=== PATIENT | male | born 1940 | race Asian ===

== ENCOUNTER 2021-05-04 08:20 | Inpatient (IN) | payer OTHER ==
[~2021-05-04] VITALS: Ht 157.5 cm; Wt 76.8 kg
[2021-05-04 09:16] LABS: Hematocrit 35.2 % (41.0-53.0); Hemoglobin 12.1 g/dL (13.5-17.5); Mean Corpuscular Hemoglobin 31.9 pg (28.0-32.0); Mean Corpuscular Hgb Conc. 34.3 g/dL (32.0-36.0); Mean Corpuscular Volume 92.9 fL (80.0-100.0); Red Blood Cells 3.79 10^6/uL (4.5-5.90); Red Cell Distribution Width 19.1 % (11.8-14.3); White Blood Cell 9.3 10^3/uL (4.4-10.8)
[2021-05-04 09:29] LABS: Basophils % (manual) 0 (0.0-2.0); Blast Cells 0; Metamyelocytes % 0; Myelocytes % 0; Promyelocytes % 0; Reactive Lymphocytes 0
[2021-05-04 09:35] LABS: Albumin 2.9 g/dL (3.4-5.0); Anion Gap 8 (5-15); Blood Urea Nitrogen 44 mg/dL (7-18); Carbon Dioxide 20 mmol/L (21-32); Chloride 112 mmol/L (98-107); Glucose 108 mg/dL (74-106); Magnesium 2.5 mg/dL (1.6-2.6); Potassium 3.7 mmol/L (3.5-5.1); Sodium 140 mmol/L (136-145)
[2021-05-04 09:41] LABS: Alanine Aminotransferase 50 U/L (16-61); Alkaline Phosphatase 97 U/L (45-117); Aspartate Aminotransferase 50 U/L (15-37); BUN/Creatinine Ratio 22.9; Bilirubin, Total 0.5 mg/dL (0.2-1.0); GFR African American 44 mL/min; GFR Non-African American 36 mL/min; Total Protein 6.9 g/dL (6.4-8.2)
[2021-05-04 10:21] LABS: Band Neutrophils % (manual) 2; Eosinophils % (manual) 6 (0-7); Lymphocytes % (manual) 10 (10.0-50.0); Monocytes % (manual) 11 (0-12)
[2021-05-04] MEDS ORDERED: cefTRIAXone 1GM/50ML D5W 50 ML IV ONE (11:30)
[2021-05-04] MEDS ORDERED: AZITHROMYCIN 500MG/ 250ML 250 ML IV ONE (11:30)
[2021-05-04 13:39] VITALS: BP 125/54
[2021-05-04] MEDS ORDERED: MORPHINE SULFATE INJECTION 2 MG/ML SYRG IV PRN (14:15)
[2021-05-04] MEDS ORDERED: HYDROcodone-ACET 5/325MG TAB PO PRN (14:15)
[2021-05-04] MEDS ORDERED: NITROGLYCERIN 0.4 MG SL TAB SL PRN (14:15)
[2021-05-04 14:28] LABS: Urine WBC None Seen /hpf (0 - 3)
[2021-05-04 14:49] LABS: Urine Bacteria FEW /hpf (None Seen); Urine Blood Negative /uL (Negative); Urine Mucus FEW (None Seen); Urine Specific Gravity 1.023 (1.001-1.035)
[2021-05-04] MEDS: FUROSEMIDE 40 MG/4 ML VIAL IV SCH (16:26)
[2021-05-04 18:35] VITALS: BP 114/60
[2021-05-04 22:00] VITALS: BP 103/57
[2021-05-04] MEDS: HEPARIN SODIUM (PORCINE) 5000 UNITS/ML 1ML VIAL SC SCH (22:15)
[2021-05-05] VITALS (8 sets, daily range): BP systolic 92–132; BP diastolic 52–60
[2021-05-05] MEDS: FUROSEMIDE 40 MG/4 ML VIAL IV SCH (06:42)
[2021-05-05] MEDS ORDERED: LOVA40TA72 PO (10:17)
[2021-05-05] MEDS ORDERED: AML5T PO (10:17)
[2021-05-05] MEDS ORDERED: LEVO250T69 PO (10:17)
[2021-05-05] MEDS ORDERED: ASPI-231 PO (10:17)
[2021-05-05] MEDS ORDERED: ACYC-161 PO (10:17)
[2021-05-05] MEDS: ASPirin 81 mg TAB PO SCH (10:43)
[2021-05-05] MEDS: DOCUSATE SOD 100 MG CAP PO SCH (10:43)
[2021-05-05] MEDS: PANTOPRAZOLE 40 MG TAB PO SCH (10:43)
[2021-05-05] MEDS: HEPARIN SODIUM (PORCINE) 5000 UNITS/ML 1ML VIAL SC SCH ×2 (10:47→22:02)
[2021-05-05] MEDS ORDERED: MORPHINE SULFATE INJECTION 2 MG/ML SYRG IV PRN (13:00)
[2021-05-05] MEDS: MIDODRINE HCL 10 MG TAB PO SCH (17:21)
[2021-05-05] MEDS ORDERED: SODIUM CHLORIDE 0.9% 500 ML IV ONE (17:30)
[2021-05-06 04:57] VITALS: BP 117/55
[2021-05-06 05:40] LABS: Basophils # (auto) 0 10 ^3/uL (0-0.2); Basophils % (auto) 0.2 % (0.0-2.0); Eosinophils # (auto) 0.6 10 ^3/uL (0-0.8); Hematocrit 34.5 % (41.0-53.0); Hemoglobin 11.9 g/dL (13.5-17.5); Lymphocytes # (auto) 0.8 10 ^3/uL (0.4-5.4); Mean Corpuscular Hemoglobin 31.8 pg (28.0-32.0); Mean Corpuscular Hgb Conc. 34.4 g/dL (32.0-36.0); Mean Corpuscular Volume 92.3 fL (80.0-100.0); Monocytes # (auto) 0.5 10 ^3/uL (0-1.3); Monocytes % (auto) 6.1 % (0.0-12.0); Neutrophils # (auto) 6.5 10 ^3/uL (1.6-8.6); Neutrophils % (auto) 77.7 % (37.0-80.0); Nucleated Red Blood Cells % 0.3 %; Red Blood Cells 3.73 10^6/uL (4.5-5.90); Red Cell Distribution Width 18.5 % (11.8-14.3); White Blood Cell 8.3 10^3/uL (4.4-10.8)
[2021-05-06] MEDS: MIDODRINE HCL 10 MG TAB PO SCH (05:45)
[2021-05-06 05:59] LABS: Potassium 3.7 mmol/L (3.5-5.1)
[2021-05-06 06:11] LABS: Albumin 2.4 g/dL (3.4-5.0); BUN/Creatinine Ratio 24.6; Bilirubin, Direct 0.2 mg/dL (0-0.2); Bilirubin, Total 0.6 mg/dL (0.2-1.0); Calcium 7.5 mg/dL (8.5-10.1); Phosphorus 2.7 mg/dL (2.5-4.90); Total Protein 6.4 g/dL (6.4-8.2)
[2021-05-06 08:57] VITALS: BP 117/60
[2021-05-06] MEDS: ASPirin 81 mg TAB PO SCH (10:00)
[2021-05-06] MEDS: DOCUSATE SOD 100 MG CAP PO SCH (10:00)
[2021-05-06] MEDS ORDERED: FUROSEMIDE 40 MG/4 ML VIAL IV SCH (10:00)
[2021-05-06] MEDS: PANTOPRAZOLE 40 MG TAB PO SCH (10:00)
[2021-05-06] MEDS: HEPARIN SODIUM (PORCINE) 5000 UNITS/ML 1ML VIAL SC SCH (10:32)
[2021-05-06] MEDS: ALBUTEROL SULF 2.5 MG/0.5ML(0.5%) NEB SOLN NEB PRN ×2 (10:41→18:03)
[2021-05-06] MEDS: IPRATROPIUM BROM 0.5 MG/2.5ML INH SOL NEB SCH ×2 (12:00→18:03)
[2021-05-06] MEDS ORDERED: guaiFENesin 200 MG/10 ML UD GT PRN (12:00)
[2021-05-06 13:00] VITALS: BP 124/61
[2021-05-06 16:31] VITALS: BP 122/74
[2021-05-06] MEDS ORDERED: ALBUMIN 25% 100 ML IV ONE (17:00)
[2021-05-06 18:32] LABS: Creatinine, Urine 146 mg/dL (30.0-125.0); Sodium Urine 25 mmol/L (40-220)
[2021-05-06 18:38] LABS: Urine Bacteria NONE SEEN /hpf (None Seen); Urine Blood 1+ /uL (Negative); Urine Mucus FEW (None Seen); Urine Specific Gravity 1.022 (1.001-1.035); Urine WBC 2 /hpf (0 - 3)
[2021-05-06 19:46] LABS: Basophils # (auto) 0 10 ^3/uL (0-0.2); Basophils % (auto) 0.6 % (0.0-2.0); Eosinophils # (auto) 0.5 10 ^3/uL (0-0.8); Eosinophils % (auto) 6.5 % (0.0-7.0); Hematocrit 35.4 % (41.0-53.0); Hemoglobin 11.8 g/dL (13.5-17.5); Lymphocytes # (auto) 0.8 10 ^3/uL (0.4-5.4); Lymphocytes % (auto) 9.8 % (10.0-50.0); Mean Corpuscular Hemoglobin 30.7 pg (28.0-32.0); Mean Corpuscular Hgb Conc. 33.3 g/dL (32.0-36.0); Mean Corpuscular Volume 92.1 fL (80.0-100.0); Monocytes # (auto) 0.5 10 ^3/uL (0-1.3); Monocytes % (auto) 6.3 % (0.0-12.0); Neutrophils # (auto) 5.9 10 ^3/uL (1.6-8.6); Neutrophils % (auto) 76.8 % (37.0-80.0); Nucleated Red Blood Cells % 0.2 %; Red Blood Cells 3.85 10^6/uL (4.5-5.90); Red Cell Distribution Width 18.9 % (11.8-14.3); White Blood Cell 7.7 10^3/uL (4.4-10.8)
[2021-05-06 20:00] VITALS: BP 119/70
[2021-05-06] MEDS: FUROSEMIDE 40 MG/4 ML VIAL IV SCH (20:11)
[2021-05-06 20:30] LABS: INR 1.1 (0.9-1.15); Partial Thromboplastin Time 30.2 sec (23.6-33.0)
[2021-05-06] MEDS: HEPARIN DRIP/D5W 100UNITS/ML 250 ML IV SCH (21:12)
[2021-05-06 22:00] VITALS: BP 130/65
[2021-05-07] MEDS: IPRATROPIUM BROM 0.5 MG/2.5ML INH SOL NEB SCH ×4 (00:13→18:05)
[2021-05-07 03:04] LABS: Basophils # (auto) 0.1 10 ^3/uL (0-0.2); Eosinophils # (auto) 0.7 10 ^3/uL (0-0.8); Eosinophils % (auto) 9.5 % (0.0-7.0); Hematocrit 31.7 % (41.0-53.0); Hemoglobin 11.1 g/dL (13.5-17.5); Lymphocytes # (auto) 0.7 10 ^3/uL (0.4-5.4); Mean Corpuscular Hemoglobin 32.1 pg (28.0-32.0); Mean Corpuscular Hgb Conc. 35.1 g/dL (32.0-36.0); Mean Corpuscular Volume 91.6 fL (80.0-100.0); Monocytes # (auto) 0.5 10 ^3/uL (0-1.3); Neutrophils # (auto) 5.9 10 ^3/uL (1.6-8.6); Neutrophils % (auto) 74.5 % (37.0-80.0); Nucleated Red Blood Cells % 0.2 %; Red Blood Cells 3.46 10^6/uL (4.5-5.90); Red Cell Distribution Width 18.2 % (11.8-14.3); White Blood Cell 7.9 10^3/uL (4.4-10.8)
[2021-05-07 03:19] LABS: Anion Gap 10 (5-15); BUN/Creatinine Ratio 22.7; Blood Urea Nitrogen 30 mg/dL (7-18); Calcium 7.4 mg/dL (8.5-10.1); Carbon Dioxide 22 mmol/L (21-32); Chloride 105 mmol/L (98-107); GFR African American 67 mL/min; GFR Non-African American 55 mL/min; Glucose 102 mg/dL (74-106); Potassium 3.6 mmol/L (3.5-5.1); Sodium 137 mmol/L (136-145)
[2021-05-07 03:52] LABS: INR 1.2 (0.9-1.15)
[2021-05-07 05:00] VITALS: BP 127/62
[2021-05-07] MEDS: ALBUTEROL SULF 2.5 MG/0.5ML(0.5%) NEB SOLN NEB PRN ×2 (05:51→18:05)
[2021-05-07] MEDS: FUROSEMIDE 40 MG/4 ML VIAL IV SCH ×2 (06:04→17:52)
[2021-05-07 08:00] VITALS: BP 114/48
[2021-05-07 08:30] VITALS: BP 114/48
[2021-05-07] MEDS: ASPirin 81 mg TAB PO SCH (09:40)
[2021-05-07] MEDS: DOCUSATE SOD 100 MG CAP PO SCH (09:40)
[2021-05-07] MEDS: PANTOPRAZOLE 40 MG TAB PO SCH (09:40)
[2021-05-07 11:16] LABS: INR 1.17 (0.9-1.15)
[2021-05-07] MEDS: HEPARIN DRIP/D5W 100UNITS/ML 250 ML IV SCH ×2 (11:22→23:06)
[2021-05-07 11:26] LABS: Partial Thromboplastin Time 102.5 sec (23.6-33.0)
[2021-05-07 12:30] VITALS: BP 118/64
[2021-05-07] MEDS: methylPREDNISolone SOD SUCC 125 MG/2 ML VL IV SCH ×2 (14:37→22:00)
[2021-05-07 17:00] VITALS: BP 110/66
[2021-05-07 18:18] LABS: INR 1.16 (0.9-1.15); Partial Thromboplastin Time 68.7 sec (23.6-33.0)
[2021-05-07 22:00] VITALS: BP 118/60
[2021-05-08] VITALS (17 sets, daily range): BP systolic 96–118; BP diastolic 44–57
[2021-05-08 00:07] LABS: INR 1.16 (0.9-1.15)
[2021-05-08] MEDS: IPRATROPIUM BROM 0.5 MG/2.5ML INH SOL NEB SCH ×5 (00:18→23:53)
[2021-05-08] MEDS: HEPARIN DRIP/D5W 100UNITS/ML 250 ML IV SCH (05:14)
[2021-05-08] MEDS: ALBUTEROL SULF 2.5 MG/0.5ML(0.5%) NEB SOLN NEB PRN ×2 (05:45→23:53)
[2021-05-08] MEDS: FUROSEMIDE 40 MG/4 ML VIAL IV SCH (05:47)
[2021-05-08] MEDS: methylPREDNISolone SOD SUCC 125 MG/2 ML VL IV SCH ×3 (05:47→22:15)
[2021-05-08 06:22] LABS: Basophils # (auto) 0 10 ^3/uL (0-0.2); Basophils % (auto) 0.4 % (0.0-2.0); Eosinophils # (auto) 0 10 ^3/uL (0-0.8); Eosinophils % (auto) 0.1 % (0.0-7.0); Hematocrit 36.7 % (41.0-53.0); Hemoglobin 12.6 g/dL (13.5-17.5); Lymphocytes # (auto) 0.6 10 ^3/uL (0.4-5.4); Lymphocytes % (auto) 10.4 % (10.0-50.0); Mean Corpuscular Hemoglobin 31.6 pg (28.0-32.0); Mean Corpuscular Hgb Conc. 34.4 g/dL (32.0-36.0); Mean Corpuscular Volume 91.7 fL (80.0-100.0); Monocytes # (auto) 0.1 10 ^3/uL (0-1.3); Monocytes % (auto) 2.4 % (0.0-12.0); Neutrophils # (auto) 4.7 10 ^3/uL (1.6-8.6); Neutrophils % (auto) 86.7 % (37.0-80.0); Nucleated Red Blood Cells % 0.1 %; Red Blood Cells 4.01 10^6/uL (4.5-5.90); Red Cell Distribution Width 18.5 % (11.8-14.3); White Blood Cell 5.5 10^3/uL (4.4-10.8)
[2021-05-08 06:38] LABS: Calcium 7.6 mg/dL (8.5-10.1); Potassium 3.7 mmol/L (3.5-5.1)
[2021-05-08 06:40] LABS: INR 1.16 (0.9-1.15)
[2021-05-08] MEDS: DOCUSATE SOD 100 MG CAP PO SCH (10:00)
[2021-05-08] MEDS: ASPirin 81 mg TAB PO SCH (10:00)
[2021-05-08] MEDS ORDERED: D5W/SOD CHL 0.45% 1,000 ML IV SCH (10:15)
[2021-05-08] MEDS: cefTRIAXone 1GM/50ML D5W 50 ML IV SCH (10:56)
[2021-05-08] MEDS: PANTOPRAZOLE 40 MG/10 ML VIAL INJ IV SCH (10:56)
[2021-05-08] MEDS ORDERED: BACTRIM 5MG/KG Q8HR PER RX 0 ML IV SCH (12:45)
[2021-05-08] MEDS ORDERED: D5W 5% IV SCH (14:00)
[2021-05-08] MEDS ORDERED: SULFAMETH TRIMETH IV SCH (14:00)
[2021-05-08] MEDS: SULFAMETH TRIMETH IV SCH ×2 (15:30→22:16)
[2021-05-08] MEDS: D5W 5% IV SCH ×2 (15:30→22:16)
[2021-05-09] VITALS (72 sets, daily range): BP systolic 82–165; BP diastolic 39–72
[2021-05-09] MEDS ORDERED: IOHEXOL 350 MG/ML 100ML IJ ONE (03:04)
[2021-05-09 04:14] LABS: Basophils # (auto) 0 10 ^3/uL (0-0.2); Basophils % (auto) 0.2 % (0.0-2.0); Eosinophils # (auto) 0 10 ^3/uL (0-0.8); Hematocrit 34.8 % (41.0-53.0); Hemoglobin 11.7 g/dL (13.5-17.5); Lymphocytes # (auto) 0.5 10 ^3/uL (0.4-5.4); Lymphocytes % (auto) 4.7 % (10.0-50.0); Mean Corpuscular Hemoglobin 30.4 pg (28.0-32.0); Mean Corpuscular Hgb Conc. 33.6 g/dL (32.0-36.0); Mean Corpuscular Volume 90.6 fL (80.0-100.0); Monocytes # (auto) 0.6 10 ^3/uL (0-1.3); Monocytes % (auto) 5.3 % (0.0-12.0); Neutrophils # (auto) 10.1 10 ^3/uL (1.6-8.6); Neutrophils % (auto) 89.8 % (37.0-80.0); Nucleated Red Blood Cells % 0.1 %; Red Blood Cells 3.84 10^6/uL (4.5-5.90); Red Cell Distribution Width 18.1 % (11.8-14.3); White Blood Cell 11.3 10^3/uL (4.4-10.8)
[2021-05-09 04:32] LABS: Albumin 2.8 g/dL (3.4-5.0); BUN/Creatinine Ratio 25.7; Calcium 6.9 mg/dL (8.5-10.1); Potassium 3.1 mmol/L (3.5-5.1)
[2021-05-09 04:35] LABS: Bilirubin, Total 0.3 mg/dL (0.2-1.0); Total Protein 6.6 g/dL (6.4-8.2)
[2021-05-09 04:56] LABS: INR 1.24 (0.9-1.15)
[2021-05-09] MEDS: D5W 5% IV SCH ×3 (05:40→22:09)
[2021-05-09] MEDS: SULFAMETH TRIMETH IV SCH ×3 (05:40→22:09)
[2021-05-09] MEDS: methylPREDNISolone SOD SUCC 125 MG/2 ML VL IV SCH ×3 (05:40→22:09)
[2021-05-09] MEDS: HEPARIN DRIP/D5W 100UNITS/ML 250 ML IV SCH ×2 (05:47→15:07)
[2021-05-09] MEDS: IPRATROPIUM BROM 0.5 MG/2.5ML INH SOL NEB SCH ×4 (06:10→23:53)
[2021-05-09] MEDS: ALBUTEROL SULF 2.5 MG/0.5ML(0.5%) NEB SOLN NEB PRN ×2 (06:10→18:33)
[2021-05-09] MEDS: cefTRIAXone 1GM/50ML D5W 50 ML IV SCH (08:56)
[2021-05-09] MEDS ORDERED: POTASSIUM EFFERVESENT TAB 25 MEQ PO ONE (10:00)
[2021-05-09] MEDS: DOCUSATE SOD 100 MG CAP PO SCH (10:00)
[2021-05-09] MEDS: ASPirin 81 mg TAB PO SCH (10:00)
[2021-05-09] MEDS ORDERED: ETOMIDATE (2MG/ML) 20ML VIAL IV ONE ×2 (10:33→10:55)
[2021-05-09] MEDS ORDERED: ROCURONIUM 10MG/ML 10ML VIAL IV ONE ×2 (10:34→10:55)
[2021-05-09] MEDS: fentaNYL Drip 2500mCg/250mlNS 250 ML IV SCH ×2 (10:45→18:50)
[2021-05-09] MEDS: NOREPINEPHRINE 8 MG/250ML KIT 250 ML IV SCH ×2 (10:45→16:30)
[2021-05-09] MEDS: PROPOFOL 100 ML IV SCH (10:45)
[2021-05-09] MEDS ORDERED: NOREPINEPHRINE 8 MG/250ML KIT 250 ML IV ONE (10:50)
[2021-05-09] MEDS ORDERED: MIDAZOLAM DRIP 50 mg/50mL 50 ML IV ONE (10:51)
[2021-05-09] MEDS: MIDAZOLAM DRIP 50 mg/50mL 50 ML IV SCH ×2 (10:55→17:34)
[2021-05-09] MEDS ORDERED: POTASSIUM CHL 20 Meq TABLET PO ONE (11:00)
[2021-05-09] MEDS: PANTOPRAZOLE 40 MG/10 ML VIAL INJ IV SCH (12:29)
[2021-05-09 13:38] LABS: INR 1.26 (0.9-1.15)
[2021-05-09 13:41] LABS: Partial Thromboplastin Time 107.3 sec (23.6-33.0)
[2021-05-09 21:39] LABS: INR 1.27 (0.9-1.15); Partial Thromboplastin Time 63.8 sec (23.6-33.0)
[2021-05-09 23:00] LABS: Partial Thromboplastin Time 75.8 sec (23.6-33.0)
[2021-05-09 23:02] LABS: Partial Thromboplastin Time 71.6 sec (23.6-33.0)
[2021-05-09 23:02] LABS: Partial Thromboplastin Time 119.6 sec (23.6-33.0)
[2021-05-10] VITALS (58 sets, daily range): BP systolic 57–166; BP diastolic 30–74
[2021-05-10] MEDS: PROPOFOL 100 ML IV SCH (03:09)
[2021-05-10 05:15] LABS: Basophils # (auto) 0 10 ^3/uL (0-0.2); Basophils % (auto) 0.2 % (0.0-2.0); Eosinophils # (auto) 0 10 ^3/uL (0-0.8); Hematocrit 32.4 % (41.0-53.0); Hemoglobin 11.2 g/dL (13.5-17.5); Lymphocytes # (auto) 0.5 10 ^3/uL (0.4-5.4); Lymphocytes % (auto) 3.8 % (10.0-50.0); Mean Corpuscular Hemoglobin 31.3 pg (28.0-32.0); Mean Corpuscular Hgb Conc. 34.6 g/dL (32.0-36.0); Mean Corpuscular Volume 90.5 fL (80.0-100.0); Monocytes % (auto) 7.2 % (0.0-12.0); Neutrophils # (auto) 12.1 10 ^3/uL (1.6-8.6); Neutrophils % (auto) 88.8 % (37.0-80.0); Nucleated Red Blood Cells % 0.1 %; Red Blood Cells 3.58 10^6/uL (4.5-5.90); Red Cell Distribution Width 18.2 % (11.8-14.3); White Blood Cell 13.7 10^3/uL (4.4-10.8)
[2021-05-10 05:22] LABS: INR 1.37 (0.9-1.15); Partial Thromboplastin Time 61.9 sec (23.6-33.0)
[2021-05-10 05:33] LABS: Potassium 3.5 mmol/L (3.5-5.1)
[2021-05-10 05:42] LABS: Albumin 2.7 g/dL (3.4-5.0); BUN/Creatinine Ratio 19.2; Bilirubin, Total 0.3 mg/dL (0.2-1.0); Calcium 6.4 mg/dL (8.5-10.1); Total Protein 6.5 g/dL (6.4-8.2)
[2021-05-10] MEDS: methylPREDNISolone SOD SUCC 125 MG/2 ML VL IV SCH ×3 (05:51→22:14)
[2021-05-10] MEDS: D5W 5% IV SCH (05:51)
[2021-05-10] MEDS: SULFAMETH TRIMETH IV SCH (05:51)
[2021-05-10] MEDS: IPRATROPIUM BROM 0.5 MG/2.5ML INH SOL NEB SCH ×3 (06:50→18:13)
[2021-05-10] MEDS: ALBUTEROL SULF 2.5 MG/0.5ML(0.5%) NEB SOLN NEB PRN ×2 (06:50→13:04)
[2021-05-10] MEDS ORDERED: SODIUM BICARBONATE 50ML VIAL 75 ML in SOD CHL 0.45% 1,000 ML IV ONE (07:30)
[2021-05-10] MEDS ORDERED: LIDOCAINE 2%HCL (LOCAL ANESTH.) INJ 20ML MDV ONE (08:29)
[2021-05-10] MEDS ORDERED: SODIUM CHLORIDE LOCK 10 ML ONE (08:29)
[2021-05-10] MEDS ORDERED: LIDOCAINE HCL 2% TOP JELLY 5ML TOP ONE (08:30)
[2021-05-10] MEDS: AZITHROMYCIN 500MG/ 250ML 250 ML IV SCH (10:14)
[2021-05-10] MEDS: PANTOPRAZOLE 40 MG/10 ML VIAL INJ IV SCH (10:14)
[2021-05-10] MEDS: DOCUSATE SOD 100 MG CAP PO SCH (10:15)
[2021-05-10] MEDS: ASPirin 81 mg TAB PO SCH (10:15)
[2021-05-10 12:10] LABS: INR 1.16 (0.9-1.15); Partial Thromboplastin Time 53.4 sec (23.6-33.0)
[2021-05-10] MEDS: HEPARIN DRIP/D5W 100UNITS/ML 250 ML IV SCH ×2 (17:27→22:17)
[2021-05-10] MEDS: MIDAZOLAM DRIP 50 mg/50mL 50 ML IV SCH ×3 (17:56→22:51)
[2021-05-10 20:44] LABS: INR 1.12 (0.9-1.15); Partial Thromboplastin Time 56.1 sec (23.6-33.0)
[2021-05-10] MEDS ORDERED: SULFAMETH TRIMETH IV SCH (22:00)
[2021-05-10] MEDS ORDERED: D5W 5% IV SCH (22:00)
[2021-05-11] VITALS (98 sets, daily range): BP systolic 90–148; BP diastolic 45–61
[2021-05-11] MEDS: PROPOFOL 100 ML IV SCH ×2 (00:10→23:52)
[2021-05-11] MEDS: IPRATROPIUM BROM 0.5 MG/2.5ML INH SOL NEB SCH ×4 (00:10→18:23)
[2021-05-11] MEDS: MIDAZOLAM DRIP 50 mg/50mL 50 ML IV SCH ×3 (03:13→22:27)
[2021-05-11] MEDS: fentaNYL Drip 2500mCg/250mlNS 250 ML IV SCH ×2 (03:14→14:05)
[2021-05-11 04:07] LABS: Albumin 2.5 g/dL (3.4-5.0); BUN/Creatinine Ratio 14.9
[2021-05-11 04:09] LABS: Bilirubin, Total 0.2 mg/dL (0.2-1.0); Total Protein 5.8 g/dL (6.4-8.2)
[2021-05-11 04:14] LABS: Basophils # (auto) 0 10 ^3/uL (0-0.2); Basophils % (auto) 0.3 % (0.0-2.0); Eosinophils # (auto) 0 10 ^3/uL (0-0.8); Hematocrit 30.7 % (41.0-53.0); Hemoglobin 10.5 g/dL (13.5-17.5); Lymphocytes # (auto) 0.3 10 ^3/uL (0.4-5.4); Lymphocytes % (auto) 3.3 % (10.0-50.0); Mean Corpuscular Hemoglobin 31.1 pg (28.0-32.0); Mean Corpuscular Hgb Conc. 34.3 g/dL (32.0-36.0); Mean Corpuscular Volume 90.6 fL (80.0-100.0); Monocytes # (auto) 0.6 10 ^3/uL (0-1.3); Neutrophils # (auto) 8.3 10 ^3/uL (1.6-8.6); Neutrophils % (auto) 90.4 % (37.0-80.0); Nucleated Red Blood Cells % 0.3 %; Red Blood Cells 3.39 10^6/uL (4.5-5.90); Red Cell Distribution Width 18.5 % (11.8-14.3); White Blood Cell 9.2 10^3/uL (4.4-10.8)
[2021-05-11 04:19] LABS: Calcium 5.7 mg/dL (8.5-10.1)
[2021-05-11 05:03] LABS: INR 1.08 (0.9-1.15); Partial Thromboplastin Time 64.5 sec (23.6-33.0)
[2021-05-11] MEDS: methylPREDNISolone SOD SUCC 125 MG/2 ML VL IV SCH ×3 (05:38→21:40)
[2021-05-11] MEDS: NOREPINEPHRINE 8 MG/250ML KIT 250 ML IV SCH (10:14)
[2021-05-11] MEDS: PANTOPRAZOLE 40 MG/10 ML VIAL INJ IV SCH (10:35)
[2021-05-11] MEDS: AZITHROMYCIN 500MG/ 250ML 250 ML IV SCH (10:35)
[2021-05-11] MEDS: ASPirin 81 mg TAB PO SCH (10:36)
[2021-05-11] MEDS: DOCUSATE SOD 100 MG CAP PO SCH (10:36)
[2021-05-11] MEDS: SODIUM CHLORIDE 0.9% 1,000 ML IV SCH (17:16)
[2021-05-11] MEDS: SULFAMETH TRIMETH IV SCH (21:57)
[2021-05-11] MEDS: D5W 5% IV SCH (21:57)
[2021-05-12] VITALS (103 sets, daily range): BP systolic 93–156; BP diastolic 39–57
[2021-05-12] MEDS: ALBUTEROL SULF 2.5 MG/0.5ML(0.5%) NEB SOLN NEB PRN ×2 (00:01→23:54)
[2021-05-12] MEDS: IPRATROPIUM BROM 0.5 MG/2.5ML INH SOL NEB SCH ×5 (00:01→23:55)
[2021-05-12 04:01] LABS: Basophils # (auto) 0 10 ^3/uL (0-0.2); Basophils % (auto) 0.2 % (0.0-2.0); Eosinophils # (auto) 0 10 ^3/uL (0-0.8); Hematocrit 30.7 % (41.0-53.0); Hemoglobin 10.5 g/dL (13.5-17.5); Lymphocytes # (auto) 0.2 10 ^3/uL (0.4-5.4); Lymphocytes % (auto) 2.8 % (10.0-50.0); Mean Corpuscular Hgb Conc. 34.2 g/dL (32.0-36.0); Mean Corpuscular Volume 90.5 fL (80.0-100.0); Monocytes # (auto) 0.6 10 ^3/uL (0-1.3); Monocytes % (auto) 6.6 % (0.0-12.0); Neutrophils # (auto) 7.7 10 ^3/uL (1.6-8.6); Neutrophils % (auto) 90.4 % (37.0-80.0); Nucleated Red Blood Cells % 0.1 %; Red Cell Distribution Width 18.3 % (11.8-14.3); White Blood Cell 8.6 10^3/uL (4.4-10.8)
[2021-05-12 04:12] LABS: INR 1.1 (0.9-1.15); Partial Thromboplastin Time 61.6 sec (23.6-33.0)
[2021-05-12 04:16] LABS: Albumin 2.7 g/dL (3.4-5.0)
[2021-05-12 04:23] LABS: BUN/Creatinine Ratio 17.3; Bilirubin, Total 0.2 mg/dL (0.2-1.0); Total Protein 6.1 g/dL (6.4-8.2)
[2021-05-12 04:24] LABS: Calcium 5.7 mg/dL (8.5-10.1)
[2021-05-12] MEDS: SODIUM CHLORIDE 0.9% 1,000 ML IV SCH ×3 (05:12→22:45)
[2021-05-12] MEDS: methylPREDNISolone SOD SUCC 125 MG/2 ML VL IV SCH ×3 (06:00→21:56)
[2021-05-12] MEDS ORDERED: FUROSEMIDE 100 MG/10ML VIAL IV ONE (08:30)
[2021-05-12] MEDS ORDERED: CALCIUM GLUC 1,000mg/50ml-NS 50 ML IV ONE ×2 (09:15→14:30)
[2021-05-12] MEDS: DOCUSATE SOD 100 MG CAP PO SCH (10:00)
[2021-05-12] MEDS: NOREPINEPHRINE 8 MG/250ML KIT 250 ML IV SCH (10:09)
[2021-05-12] MEDS: PANTOPRAZOLE 40 MG/10 ML VIAL INJ IV SCH (10:25)
[2021-05-12] MEDS: HEPARIN DRIP/D5W 100UNITS/ML 250 ML IV SCH (10:25)
[2021-05-12] MEDS: AZITHROMYCIN 500MG/ 250ML 250 ML IV SCH (10:25)
[2021-05-12] MEDS: ASPirin 81 mg TAB PO SCH (10:25)
[2021-05-12] MEDS: PROPOFOL 100 ML IV SCH ×2 (10:51→16:44)
[2021-05-12] MEDS: MIDAZOLAM DRIP 50 mg/50mL 50 ML IV SCH ×4 (12:20→23:35)
[2021-05-12 13:01] LABS: Potassium 4.5 mmol/L (3.5-5.1)
[2021-05-12 13:04] LABS: BUN/Creatinine Ratio 18.4
[2021-05-12] MEDS: fentaNYL Drip 2500mCg/250mlNS 250 ML IV SCH (14:29)
[2021-05-12] MEDS: D5W 5% IV SCH (21:56)
[2021-05-12] MEDS: SULFAMETH TRIMETH IV SCH (21:56)
[2021-05-13] VITALS (100 sets, daily range): BP systolic 97–130; BP diastolic 41–55
[2021-05-13] MEDS: fentaNYL Drip 2500mCg/250mlNS 250 ML IV SCH ×2 (00:41→14:12)
[2021-05-13] MEDS: PROPOFOL 100 ML IV SCH ×2 (04:00→14:13)
[2021-05-13 04:11] LABS: Basophils # (auto) 0.1 10 ^3/uL (0-0.2); Basophils % (auto) 0.9 % (0.0-2.0); Eosinophils # (auto) 0 10 ^3/uL (0-0.8); Hematocrit 29.4 % (41.0-53.0); Hemoglobin 9.9 g/dL (13.5-17.5); Lymphocytes # (auto) 0.2 10 ^3/uL (0.4-5.4); Lymphocytes % (auto) 2.1 % (10.0-50.0); Mean Corpuscular Hemoglobin 30.8 pg (28.0-32.0); Mean Corpuscular Hgb Conc. 33.6 g/dL (32.0-36.0); Mean Corpuscular Volume 91.8 fL (80.0-100.0); Monocytes # (auto) 0.3 10 ^3/uL (0-1.3); Monocytes % (auto) 3.4 % (0.0-12.0); Neutrophils # (auto) 7.9 10 ^3/uL (1.6-8.6); Neutrophils % (auto) 93.6 % (37.0-80.0); Nucleated Red Blood Cells % 0.2 %; Red Cell Distribution Width 18.7 % (11.8-14.3); White Blood Cell 8.5 10^3/uL (4.4-10.8)
[2021-05-13 04:29] LABS: INR 1.07 (0.9-1.15); Partial Thromboplastin Time 56.8 sec (23.6-33.0)
[2021-05-13 04:32] LABS: Albumin 2.6 g/dL (3.4-5.0)
[2021-05-13 04:36] LABS: BUN/Creatinine Ratio 18.8; Bilirubin, Total 0.2 mg/dL (0.2-1.0)
[2021-05-13 04:40] LABS: Calcium 5.8 mg/dL (8.5-10.1)
[2021-05-13] MEDS ORDERED: MAGNESIUM SULFATE 1GM/100ML 100 ML IV ONE (05:00)
[2021-05-13] MEDS ORDERED: CALCIUM GLUC 1,000mg/50ml-NS 50 ML IV ONE ×4 (05:00→10:45)
[2021-05-13] MEDS: methylPREDNISolone SOD SUCC 125 MG/2 ML VL IV SCH ×3 (06:05→21:27)
[2021-05-13] MEDS: MIDAZOLAM DRIP 50 mg/50mL 50 ML IV SCH ×4 (06:06→16:57)
[2021-05-13] MEDS: IPRATROPIUM BROM 0.5 MG/2.5ML INH SOL NEB SCH ×3 (06:08→18:26)
[2021-05-13] MEDS: ALBUTEROL SULF 2.5 MG/0.5ML(0.5%) NEB SOLN NEB PRN ×2 (06:08→18:26)
[2021-05-13] MEDS: SODIUM CHLORIDE 0.9% 1,000 ML IV SCH (08:45)
[2021-05-13] MEDS: PANTOPRAZOLE 40 MG/10 ML VIAL INJ IV SCH (09:32)
[2021-05-13] MEDS: ASPirin 81 mg TAB PO SCH (09:32)
[2021-05-13] MEDS: AZITHROMYCIN 500MG/ 250ML 250 ML IV SCH (09:32)
[2021-05-13] MEDS: DOCUSATE ORAL LIQUID 100 MG/10 ML UD GT SCH (09:35)
[2021-05-13] MEDS: NOREPINEPHRINE 8 MG/250ML KIT 250 ML IV SCH (09:57)
[2021-05-13] MEDS ORDERED: MICAFUNGIN SODIUM 100 MG in SODIUM CHL 0.9% 100 ML IV STA (10:10)
[2021-05-13] MEDS: DOPamine 1600MCG/ML D5W 250 ML IV SCH (11:04)
[2021-05-13] MEDS: CALCIUM GLUC 1,000mg/50ml-NS 50 ML IV SCH ×3 (11:15→13:09)
[2021-05-13] MEDS: HEPARIN DRIP/D5W 100UNITS/ML 250 ML IV SCH (14:00)
[2021-05-13] MEDS: SULFAMETH TRIMETH IV SCH (21:39)
[2021-05-13] MEDS: D5W 5% IV SCH (21:39)
[2021-05-14] VITALS (103 sets, daily range): BP systolic 104–124; BP diastolic 38–54
[2021-05-14] MEDS: ALBUTEROL SULF 2.5 MG/0.5ML(0.5%) NEB SOLN NEB PRN ×4 (00:09→19:13)
[2021-05-14] MEDS: IPRATROPIUM BROM 0.5 MG/2.5ML INH SOL NEB SCH ×4 (00:10→19:14)
[2021-05-14 04:21] LABS: Basophils # (auto) 0 10 ^3/uL (0-0.2); Basophils % (auto) 0.1 % (0.0-2.0); Eosinophils # (auto) 0 10 ^3/uL (0-0.8); Hematocrit 28.9 % (41.0-53.0); Hemoglobin 9.7 g/dL (13.5-17.5); Lymphocytes # (auto) 0.2 10 ^3/uL (0.4-5.4); Lymphocytes % (auto) 1.9 % (10.0-50.0); Mean Corpuscular Hgb Conc. 33.7 g/dL (32.0-36.0); Monocytes # (auto) 0.4 10 ^3/uL (0-1.3); Monocytes % (auto) 3.6 % (0.0-12.0); Neutrophils # (auto) 9.3 10 ^3/uL (1.6-8.6); Neutrophils % (auto) 94.4 % (37.0-80.0); Nucleated Red Blood Cells % 0.3 %; Red Blood Cells 3.14 10^6/uL (4.5-5.90); Red Cell Distribution Width 18.8 % (11.8-14.3); White Blood Cell 9.9 10^3/uL (4.4-10.8)
[2021-05-14 04:42] LABS: Calcium 6.2 mg/dL (8.5-10.1); Potassium 4.9 mmol/L (3.5-5.1)
[2021-05-14 04:44] LABS: Albumin 2.6 g/dL (3.4-5.0); BUN/Creatinine Ratio 20.4
[2021-05-14 04:47] LABS: Bilirubin, Total 0.3 mg/dL (0.2-1.0); Total Protein 5.9 g/dL (6.4-8.2)
[2021-05-14 04:59] LABS: INR 1.05 (0.9-1.15)
[2021-05-14 05:03] LABS: Partial Thromboplastin Time 104.4 sec (23.6-33.0)
[2021-05-14] MEDS: methylPREDNISolone SOD SUCC 125 MG/2 ML VL IV SCH ×3 (06:03→21:48)
[2021-05-14] MEDS: NOREPINEPHRINE 8 MG/250ML KIT 250 ML IV SCH (08:49)
[2021-05-14] MEDS: MIDAZOLAM DRIP 50 mg/50mL 50 ML IV SCH ×2 (08:51→13:42)
[2021-05-14] MEDS ORDERED: CALCIUM GLUC 1,000mg/50ml-NS 50 ML IV ONE ×2 (10:00→10:30)
[2021-05-14] MEDS: DOCUSATE ORAL LIQUID 100 MG/10 ML UD GT SCH (10:26)
[2021-05-14] MEDS: PANTOPRAZOLE 40 MG/10 ML VIAL INJ IV SCH (10:27)
[2021-05-14] MEDS: CALCIUM ACETATE 667 MG CAP NG SCH ×2 (10:27→21:48)
[2021-05-14] MEDS: CALCITRIOL 0.25 MCG CAP NG SCH (10:36)
[2021-05-14] MEDS: ASPirin 81 mg TAB PO SCH (10:36)
[2021-05-14] MEDS: DOPamine 1600MCG/ML D5W 250 ML IV SCH (11:33)
[2021-05-14] MEDS: PROPOFOL 100 ML IV SCH (11:56)
[2021-05-14] MEDS: AZITHROMYCIN 500MG/ 250ML 250 ML IV SCH (12:24)
[2021-05-14] MEDS: MICAFUNGIN SODIUM 100 MG in SODIUM CHL 0.9% 100 ML IV SCH (13:30)
[2021-05-14] MEDS: fentaNYL Drip 2500mCg/250mlNS 250 ML IV SCH (14:15)
[2021-05-14] MEDS: HEPARIN DRIP/D5W 100UNITS/ML 250 ML IV SCH (15:35)
[2021-05-14 16:30] LABS: INR 1.02 (0.9-1.15); Partial Thromboplastin Time 49.5 sec (23.6-33.0)
[2021-05-14] MEDS: D5W 5% IV SCH (21:48)
[2021-05-14] MEDS: SULFAMETH TRIMETH IV SCH (21:48)
[2021-05-14 23:44] LABS: INR 1.05 (0.9-1.15); Partial Thromboplastin Time 66.2 sec (23.6-33.0)
[2021-05-15] VITALS (106 sets, daily range): BP systolic 97–122; BP diastolic 39–52
[2021-05-15] MEDS: IPRATROPIUM BROM 0.5 MG/2.5ML INH SOL NEB SCH ×4 (01:48→18:13)
[2021-05-15] MEDS: ALBUTEROL SULF 2.5 MG/0.5ML(0.5%) NEB SOLN NEB PRN (01:48)
[2021-05-15 04:21] LABS: Basophils # (auto) 0 10 ^3/uL (0-0.2); Basophils % (auto) 0.4 % (0.0-2.0); Eosinophils # (auto) 0 10 ^3/uL (0-0.8); Hematocrit 28.7 % (41.0-53.0); Hemoglobin 9.3 g/dL (13.5-17.5); Lymphocytes # (auto) 0.2 10 ^3/uL (0.4-5.4); Lymphocytes % (auto) 1.5 % (10.0-50.0); Mean Corpuscular Hemoglobin 30.1 pg (28.0-32.0); Mean Corpuscular Hgb Conc. 32.5 g/dL (32.0-36.0); Mean Corpuscular Volume 92.7 fL (80.0-100.0); Monocytes # (auto) 0.3 10 ^3/uL (0-1.3); Monocytes % (auto) 2.6 % (0.0-12.0); Neutrophils # (auto) 10.8 10 ^3/uL (1.6-8.6); Neutrophils % (auto) 95.5 % (37.0-80.0); Nucleated Red Blood Cells % 0.3 %; Red Blood Cells 3.09 10^6/uL (4.5-5.90); Red Cell Distribution Width 18.4 % (11.8-14.3); White Blood Cell 11.3 10^3/uL (4.4-10.8)
[2021-05-15 04:54] LABS: Albumin 2.6 g/dL (3.4-5.0); BUN/Creatinine Ratio 21.9; Bilirubin, Total 0.3 mg/dL (0.2-1.0); Calcium 7.1 mg/dL (8.5-10.1)
[2021-05-15] MEDS: CALCIUM ACETATE 667 MG CAP NG SCH ×3 (05:20→21:54)
[2021-05-15] MEDS: methylPREDNISolone SOD SUCC 125 MG/2 ML VL IV SCH ×3 (05:20→21:55)
[2021-05-15 06:24] LABS: INR 1.06 (0.9-1.15)
[2021-05-15 06:28] LABS: Partial Thromboplastin Time 111.9 sec (23.6-33.0)
[2021-05-15 06:29] LABS: Potassium 5.6 mmol/L (3.5-5.1)
[2021-05-15] MEDS ORDERED: SODIUM ZIRCONIUM CYCL 10 GM PAK PO ONE (09:15)
[2021-05-15] MEDS: MIDAZOLAM DRIP 50 mg/50mL 50 ML IV SCH ×2 (09:30→16:35)
[2021-05-15] MEDS: ASPirin 81 mg TAB PO SCH (10:33)
[2021-05-15] MEDS: AZITHROMYCIN 500MG/ 250ML 250 ML IV SCH (10:53)
[2021-05-15] MEDS: PANTOPRAZOLE 40 MG/10 ML VIAL INJ IV SCH (10:53)
[2021-05-15] MEDS: DOCUSATE ORAL LIQUID 100 MG/10 ML UD GT SCH (10:53)
[2021-05-15] MEDS: CALCITRIOL 0.25 MCG CAP NG SCH (10:54)
[2021-05-15] MEDS: DOPamine 1600MCG/ML D5W 250 ML IV SCH (10:54)
[2021-05-15] MEDS: MICAFUNGIN SODIUM 100 MG in SODIUM CHL 0.9% 100 ML IV SCH (10:54)
[2021-05-15] MEDS: NOREPINEPHRINE 8 MG/250ML KIT 250 ML IV SCH (10:55)
[2021-05-15] MEDS: BUMETANIDE INJECTION 12.5 MG in GIVE UN-DILUTED 0 ML IV SCH (10:59)
[2021-05-15] MEDS: PROPOFOL 100 ML IV SCH (12:45)
[2021-05-15 13:53] LABS: INR 1.05 (0.9-1.15); Partial Thromboplastin Time 38.6 sec (23.6-33.0)
[2021-05-15] MEDS: HEPARIN DRIP/D5W 100UNITS/ML 250 ML IV SCH (14:10)
[2021-05-15] MEDS: fentaNYL Drip 2500mCg/250mlNS 250 ML IV SCH (15:05)
[2021-05-15 21:42] LABS: INR 1.05 (0.9-1.15); Partial Thromboplastin Time 55.2 sec (23.6-33.0)
[2021-05-15] MEDS: SULFAMETH TRIMETH IV SCH (22:15)
[2021-05-15] MEDS: D5W 5% IV SCH (22:15)
[2021-05-16] VITALS (106 sets, daily range): BP systolic 97–142; BP diastolic 40–78
[2021-05-16] MEDS: IPRATROPIUM BROM 0.5 MG/2.5ML INH SOL NEB SCH ×4 (00:06→20:34)
[2021-05-16 04:26] LABS: Basophils # (auto) 0 10 ^3/uL (0-0.2); Basophils % (auto) 0.3 % (0.0-2.0); Eosinophils # (auto) 0 10 ^3/uL (0-0.8); Hematocrit 27.5 % (41.0-53.0); Hemoglobin 9.3 g/dL (13.5-17.5); Lymphocytes # (auto) 0.2 10 ^3/uL (0.4-5.4); Lymphocytes % (auto) 1.5 % (10.0-50.0); Mean Corpuscular Hemoglobin 30.6 pg (28.0-32.0); Mean Corpuscular Hgb Conc. 33.7 g/dL (32.0-36.0); Mean Corpuscular Volume 90.7 fL (80.0-100.0); Monocytes # (auto) 0.3 10 ^3/uL (0-1.3); Monocytes % (auto) 3.1 % (0.0-12.0); Neutrophils # (auto) 10.7 10 ^3/uL (1.6-8.6); Neutrophils % (auto) 95.1 % (37.0-80.0); Nucleated Red Blood Cells % 0.5 %; Red Blood Cells 3.03 10^6/uL (4.5-5.90); Red Cell Distribution Width 18.7 % (11.8-14.3); White Blood Cell 11.3 10^3/uL (4.4-10.8)
[2021-05-16 04:47] LABS: Albumin 2.6 g/dL (3.4-5.0); Calcium 7.2 mg/dL (8.5-10.1); Potassium 5.4 mmol/L (3.5-5.1)
[2021-05-16 04:51] LABS: BUN/Creatinine Ratio 25.6; Bilirubin, Total 0.4 mg/dL (0.2-1.0); Total Protein 5.8 g/dL (6.4-8.2)
[2021-05-16] MEDS: methylPREDNISolone SOD SUCC 125 MG/2 ML VL IV SCH ×3 (05:12→22:09)
[2021-05-16] MEDS: CALCIUM ACETATE 667 MG CAP NG SCH ×3 (05:13→22:10)
[2021-05-16 06:10] LABS: INR 1.06 (0.9-1.15)
[2021-05-16 06:11] LABS: Partial Thromboplastin Time 57.6 sec (23.6-33.0)
[2021-05-16] MEDS: ALBUTEROL SULF 2.5 MG/0.5ML(0.5%) NEB SOLN NEB PRN ×3 (06:47→20:34)
[2021-05-16] MEDS: BUMETANIDE INJECTION 12.5 MG in GIVE UN-DILUTED 0 ML IV SCH ×2 (09:48→22:00)
[2021-05-16 10:09] LABS: INR 1.07 (0.9-1.15); Partial Thromboplastin Time 53.6 sec (23.6-33.0)
[2021-05-16] MEDS: ASPirin 81 mg TAB PO SCH (10:32)
[2021-05-16] MEDS: MICAFUNGIN SODIUM 100 MG in SODIUM CHL 0.9% 100 ML IV SCH (10:44)
[2021-05-16] MEDS: DOCUSATE ORAL LIQUID 100 MG/10 ML UD GT SCH (10:44)
[2021-05-16] MEDS: PANTOPRAZOLE 40 MG/10 ML VIAL INJ IV SCH ×2 (10:44→22:09)
[2021-05-16] MEDS: CALCITRIOL 0.25 MCG CAP NG SCH (10:45)
[2021-05-16] MEDS: AZITHROMYCIN 500MG/ 250ML 250 ML IV SCH (10:45)
[2021-05-16] MEDS: DOPamine 1600MCG/ML D5W 250 ML IV SCH (10:56)
[2021-05-16] MEDS: PROPOFOL 100 ML IV SCH (10:57)
[2021-05-16] MEDS: MIDAZOLAM DRIP 50 mg/50mL 50 ML IV SCH (10:57)
[2021-05-16] MEDS: NOREPINEPHRINE 8 MG/250ML KIT 250 ML IV SCH (10:57)
[2021-05-16] MEDS: fentaNYL Drip 2500mCg/250mlNS 250 ML IV SCH ×2 (13:02→19:25)
[2021-05-16] MEDS ORDERED: PANTOPRAZOLE 40mg/50ML NS AE 50 ML IV SCH (15:00)
[2021-05-16] MEDS: SULFAMETH TRIMETH IV SCH (22:09)
[2021-05-16] MEDS: D5W 5% IV SCH (22:09)
[2021-05-17] VITALS (104 sets, daily range): BP systolic 84–119; BP diastolic 38–56
[2021-05-17] MEDS: IPRATROPIUM BROM 0.5 MG/2.5ML INH SOL NEB SCH ×4 (00:44→18:47)
[2021-05-17] MEDS: ALBUTEROL SULF 2.5 MG/0.5ML(0.5%) NEB SOLN NEB PRN ×4 (00:44→18:47)
[2021-05-17] MEDS: PROPOFOL 100 ML IV SCH ×3 (02:00→21:53)
[2021-05-17 04:39] LABS: Basophils # (auto) 0.2 10 ^3/uL (0-0.2); Basophils % (auto) 1.2 % (0.0-2.0); Eosinophils # (auto) 0 10 ^3/uL (0-0.8); Lymphocytes # (auto) 0.8 10 ^3/uL (0.4-5.4); Lymphocytes % (auto) 6.2 % (10.0-50.0); Mean Corpuscular Hemoglobin 30.9 pg (28.0-32.0); Mean Corpuscular Hgb Conc. 33.3 g/dL (32.0-36.0); Mean Corpuscular Volume 92.9 fL (80.0-100.0); Monocytes # (auto) 0.2 10 ^3/uL (0-1.3); Monocytes % (auto) 1.3 % (0.0-12.0); Neutrophils # (auto) 11.5 10 ^3/uL (1.6-8.6); Neutrophils % (auto) 91.3 % (37.0-80.0); Nucleated Red Blood Cells % 0.6 %; Red Blood Cells 2.91 10^6/uL (4.5-5.90); Red Cell Distribution Width 18.7 % (11.8-14.3); White Blood Cell 12.6 10^3/uL (4.4-10.8)
[2021-05-17 05:01] LABS: Albumin 2.4 g/dL (3.4-5.0); Potassium 5.1 mmol/L (3.5-5.1)
[2021-05-17 05:03] LABS: BUN/Creatinine Ratio 27.7
[2021-05-17 05:10] LABS: Bilirubin, Total 0.4 mg/dL (0.2-1.0); Total Protein 5.5 g/dL (6.4-8.2)
[2021-05-17] MEDS: CALCIUM ACETATE 667 MG CAP NG SCH ×3 (06:00→22:28)
[2021-05-17] MEDS: methylPREDNISolone SOD SUCC 125 MG/2 ML VL IV SCH ×3 (06:00→22:28)
[2021-05-17] MEDS: fentaNYL Drip 2500mCg/250mlNS 250 ML IV SCH ×2 (07:05→18:51)
[2021-05-17] MEDS: CALCITRIOL 0.25 MCG CAP NG SCH (09:42)
[2021-05-17] MEDS: DOCUSATE ORAL LIQUID 100 MG/10 ML UD GT SCH (09:43)
[2021-05-17] MEDS: PANTOPRAZOLE 40 MG/10 ML VIAL INJ IV SCH ×2 (09:43→22:28)
[2021-05-17] MEDS: AZITHROMYCIN 500MG/ 250ML 250 ML IV SCH (09:43)
[2021-05-17] MEDS: MICAFUNGIN SODIUM 100 MG in SODIUM CHL 0.9% 100 ML IV SCH (09:54)
[2021-05-17] MEDS: ASPirin 81 mg TAB PO SCH (10:00)
[2021-05-17] MEDS: NOREPINEPHRINE 8 MG/250ML KIT 250 ML IV SCH ×2 (10:45→16:34)
[2021-05-17] MEDS: DOPamine 1600MCG/ML D5W 250 ML IV SCH ×2 (10:45→16:34)
[2021-05-17] MEDS: MIDAZOLAM DRIP 50 mg/50mL 50 ML IV SCH ×3 (16:33→21:54)
[2021-05-17] MEDS: D5W 5% IV SCH (22:28)
[2021-05-17] MEDS: SULFAMETH TRIMETH IV SCH (22:28)
[2021-05-18] VITALS (103 sets, daily range): BP systolic 85–121; BP diastolic 34–51
[2021-05-18] MEDS: IPRATROPIUM BROM 0.5 MG/2.5ML INH SOL NEB SCH ×4 (00:32→17:59)
[2021-05-18] MEDS: MIDAZOLAM DRIP 50 mg/50mL 50 ML IV SCH ×3 (03:00→19:00)
[2021-05-18] MEDS: PROPOFOL 100 ML IV SCH ×3 (05:30→19:00)
[2021-05-18] MEDS: CALCIUM ACETATE 667 MG CAP NG SCH ×4 (06:00→22:25)
[2021-05-18] MEDS: methylPREDNISolone SOD SUCC 125 MG/2 ML VL IV SCH ×3 (06:00→22:25)
[2021-05-18 06:18] LABS: Albumin 2.5 g/dL (3.4-5.0); Calcium 6.9 mg/dL (8.5-10.1); Potassium 5.4 mmol/L (3.5-5.1)
[2021-05-18 06:23] LABS: BUN/Creatinine Ratio 31.4; Bilirubin, Total 0.5 mg/dL (0.2-1.0); Total Protein 5.4 g/dL (6.4-8.2)
[2021-05-18] MEDS: ALBUTEROL SULF 2.5 MG/0.5ML(0.5%) NEB SOLN NEB PRN ×2 (06:32→17:59)
[2021-05-18 06:36] LABS: Basophils # (auto) 0.1 10 ^3/uL (0-0.2); Basophils % (auto) 0.4 % (0.0-2.0); Eosinophils # (auto) 0 10 ^3/uL (0-0.8); Hematocrit 25.6 % (41.0-53.0); Hemoglobin 8.6 g/dL (13.5-17.5); Lymphocytes # (auto) 0.2 10 ^3/uL (0.4-5.4); Lymphocytes % (auto) 1.2 % (10.0-50.0); Mean Corpuscular Hemoglobin 30.7 pg (28.0-32.0); Mean Corpuscular Hgb Conc. 33.6 g/dL (32.0-36.0); Mean Corpuscular Volume 91.4 fL (80.0-100.0); Monocytes # (auto) 0.2 10 ^3/uL (0-1.3); Monocytes % (auto) 1.5 % (0.0-12.0); Neutrophils # (auto) 12.7 10 ^3/uL (1.6-8.6); Neutrophils % (auto) 96.9 % (37.0-80.0); Nucleated Red Blood Cells % 0.6 %; Red Cell Distribution Width 19.1 % (11.8-14.3); White Blood Cell 13.2 10^3/uL (4.4-10.8)
[2021-05-18] MEDS: DOCUSATE ORAL LIQUID 100 MG/10 ML UD GT SCH (08:04)
[2021-05-18] MEDS: ASPirin 81 mg TAB PO SCH (08:04)
[2021-05-18] MEDS: PANTOPRAZOLE 40 MG/10 ML VIAL INJ IV SCH ×2 (08:05→22:25)
[2021-05-18] MEDS: MICAFUNGIN SODIUM 100 MG in SODIUM CHL 0.9% 100 ML IV SCH (08:05)
[2021-05-18] MEDS: AZITHROMYCIN 500MG/ 250ML 250 ML IV SCH (08:05)
[2021-05-18] MEDS: fentaNYL Drip 2500mCg/250mlNS 250 ML IV SCH ×2 (08:08→23:16)
[2021-05-18] MEDS: BUMETANIDE INJECTION 12.5 MG in GIVE UN-DILUTED 0 ML IV SCH ×2 (09:45→19:00)
[2021-05-18] MEDS: CALCITRIOL 0.25 MCG CAP NG SCH (10:00)
[2021-05-18] MEDS ORDERED: HEPARIN SODIUM (PORCINE) 5000 UNITS/ML 1ML VIAL IV ONE (10:45)
[2021-05-18] MEDS: SODIUM ZIRCONIUM CYCL 10 GM PAK PO SCH ×3 (13:16→22:26)
[2021-05-18] MEDS ORDERED: SODIUM CHL 0.9% 1000 ML BAG XX ONE (20:15)
[2021-05-18] MEDS: ALBUMIN 25% 100 ML IV SCH ×2 (21:00→22:00)
[2021-05-18] MEDS ORDERED: EPOETIN ALFA-EPBX 10,000 UNIT/1ML VIAL SC ONE (21:00)
[2021-05-18] MEDS: SULFAMETH TRIMETH IV SCH (22:24)
[2021-05-18] MEDS: D5W 5% IV SCH (22:24)
[2021-05-18 22:26] LABS: BUN/Creatinine Ratio 33.3; Calcium 6.9 mg/dL (8.5-10.1); Potassium 4.3 mmol/L (3.5-5.1)
[2021-05-19] VITALS (102 sets, daily range): BP systolic 85–123; BP diastolic 32–53
[2021-05-19] MEDS: ALBUTEROL SULF 2.5 MG/0.5ML(0.5%) NEB SOLN NEB PRN ×4 (00:14→18:50)
[2021-05-19] MEDS: IPRATROPIUM BROM 0.5 MG/2.5ML INH SOL NEB SCH ×4 (00:14→18:50)
[2021-05-19] MEDS: PROPOFOL 100 ML IV SCH ×2 (02:00→12:16)
[2021-05-19 04:47] LABS: Basophils # (auto) 0.1 10 ^3/uL (0-0.2); Basophils % (auto) 0.8 % (0.0-2.0); Eosinophils # (auto) 0 10 ^3/uL (0-0.8); Hematocrit 24.7 % (41.0-53.0); Hemoglobin 8.2 g/dL (13.5-17.5); Lymphocytes # (auto) 0.6 10 ^3/uL (0.4-5.4); Lymphocytes % (auto) 4.5 % (10.0-50.0); Mean Corpuscular Hemoglobin 30.6 pg (28.0-32.0); Mean Corpuscular Hgb Conc. 33.2 g/dL (32.0-36.0); Mean Corpuscular Volume 92.1 fL (80.0-100.0); Monocytes # (auto) 0.2 10 ^3/uL (0-1.3); Monocytes % (auto) 1.5 % (0.0-12.0); Neutrophils # (auto) 12.8 10 ^3/uL (1.6-8.6); Neutrophils % (auto) 93.2 % (37.0-80.0); Nucleated Red Blood Cells % 1.2 %; Red Blood Cells 2.68 10^6/uL (4.5-5.90); White Blood Cell 13.7 10^3/uL (4.4-10.8)
[2021-05-19 05:08] LABS: Albumin 2.4 g/dL (3.4-5.0); Calcium 6.7 mg/dL (8.5-10.1); Potassium 4.6 mmol/L (3.5-5.1)
[2021-05-19 05:12] LABS: BUN/Creatinine Ratio 31.6; Bilirubin, Total 0.5 mg/dL (0.2-1.0); Total Protein 5.2 g/dL (6.4-8.2)
[2021-05-19] MEDS: methylPREDNISolone SOD SUCC 125 MG/2 ML VL IV SCH ×3 (06:00→22:09)
[2021-05-19] MEDS: SODIUM ZIRCONIUM CYCL 10 GM PAK PO SCH (06:00)
[2021-05-19] MEDS: CALCIUM ACETATE 667 MG CAP NG SCH ×3 (06:00→22:09)
[2021-05-19] MEDS ORDERED: CALCIUM GLUC 1,000mg/50ml-NS 50 ML IV ONE (09:30)
[2021-05-19] MEDS: DOCUSATE ORAL LIQUID 100 MG/10 ML UD GT SCH (09:41)
[2021-05-19] MEDS: PANTOPRAZOLE 40 MG/10 ML VIAL INJ IV SCH ×2 (09:41→22:09)
[2021-05-19] MEDS: MICAFUNGIN SODIUM 100 MG in SODIUM CHL 0.9% 100 ML IV SCH (09:41)
[2021-05-19] MEDS: ASPirin 81 mg TAB PO SCH (09:41)
[2021-05-19] MEDS: AZITHROMYCIN 500MG/ 250ML 250 ML IV SCH (09:41)
[2021-05-19] MEDS: CALCITRIOL 0.25 MCG CAP NG SCH (09:42)
[2021-05-19] MEDS: NOREPINEPHRINE 8 MG/250ML KIT 250 ML IV SCH (10:27)
[2021-05-19] MEDS: DOPamine 1600MCG/ML D5W 250 ML IV SCH (10:27)
[2021-05-19] MEDS: BUMETANIDE INJECTION 12.5 MG in GIVE UN-DILUTED 0 ML IV SCH (12:15)
[2021-05-19] MEDS: MIDAZOLAM DRIP 50 mg/50mL 50 ML IV SCH ×2 (12:16→22:00)
[2021-05-19] MEDS: fentaNYL Drip 2500mCg/250mlNS 250 ML IV SCH (20:00)
[2021-05-19] MEDS: D5W 5% IV SCH (22:08)
[2021-05-19] MEDS: SULFAMETH TRIMETH IV SCH (22:08)
[2021-05-20] VITALS (107 sets, daily range): BP systolic 94–135; BP diastolic 40–56
[2021-05-20] MEDS: PROPOFOL 100 ML IV SCH ×2 (00:01→12:15)
[2021-05-20] MEDS: IPRATROPIUM BROM 0.5 MG/2.5ML INH SOL NEB SCH ×4 (00:24→18:26)
[2021-05-20] MEDS: ALBUTEROL SULF 2.5 MG/0.5ML(0.5%) NEB SOLN NEB PRN ×3 (00:24→18:26)
[2021-05-20 05:07] LABS: Basophils # (auto) 0 10 ^3/uL (0-0.2); Eosinophils # (auto) 0 10 ^3/uL (0-0.8); Hemoglobin 8.3 g/dL (13.5-17.5); Neutrophils # (auto) 15.2 10 ^3/uL (1.6-8.6); White Blood Cell 15.8 10^3/uL (4.4-10.8)
[2021-05-20 05:19] LABS: Hematocrit 24.3 % (41.0-53.0); Lymphocytes # (auto) 0.4 10 ^3/uL (0.4-5.4); Lymphocytes % (auto) 2.7 % (10.0-50.0); Mean Corpuscular Hemoglobin 31.1 pg (28.0-32.0); Mean Corpuscular Hgb Conc. 34.2 g/dL (32.0-36.0); Mean Corpuscular Volume 90.8 fL (80.0-100.0); Monocytes # (auto) 0.2 10 ^3/uL (0-1.3); Monocytes % (auto) 1.4 % (0.0-12.0); Neutrophils % (auto) 95.9 % (37.0-80.0); Nucleated Red Blood Cells % 0.8 %; Red Blood Cells 2.68 10^6/uL (4.5-5.90); Red Cell Distribution Width 18.9 % (11.8-14.3)
[2021-05-20 05:29] LABS: Albumin 2.2 g/dL (3.4-5.0); BUN/Creatinine Ratio 33.5; Calcium 6.7 mg/dL (8.5-10.1); Potassium 3.7 mmol/L (3.5-5.1)
[2021-05-20 05:32] LABS: Bilirubin, Total 0.4 mg/dL (0.2-1.0); Total Protein 5.2 g/dL (6.4-8.2)
[2021-05-20] MEDS: CALCIUM ACETATE 667 MG CAP NG SCH ×3 (06:00→23:35)
[2021-05-20] MEDS: methylPREDNISolone SOD SUCC 125 MG/2 ML VL IV SCH ×3 (06:00→23:35)
[2021-05-20] MEDS: MIDAZOLAM DRIP 50 mg/50mL 50 ML IV SCH ×2 (07:45→21:00)
[2021-05-20] MEDS: ASPirin 81 mg TAB PO SCH (09:30)
[2021-05-20] MEDS: PANTOPRAZOLE 40 MG/10 ML VIAL INJ IV SCH ×2 (09:30→23:35)
[2021-05-20] MEDS: DOCUSATE ORAL LIQUID 100 MG/10 ML UD GT SCH (09:30)
[2021-05-20] MEDS: CALCITRIOL 0.25 MCG CAP NG SCH (09:31)
[2021-05-20] MEDS: MICAFUNGIN SODIUM 100 MG in SODIUM CHL 0.9% 100 ML IV SCH (09:31)
[2021-05-20] MEDS: AZITHROMYCIN 500MG/ 250ML 250 ML IV SCH (09:31)
[2021-05-20] MEDS: NOREPINEPHRINE 8 MG/250ML KIT 250 ML IV SCH (10:45)
[2021-05-20] MEDS: DOPamine 1600MCG/ML D5W 250 ML IV SCH (14:31)
[2021-05-20] MEDS: fentaNYL Drip 2500mCg/250mlNS 250 ML IV SCH (17:34)
[2021-05-20] MEDS: SULFAMETH TRIMETH IV SCH (23:34)
[2021-05-20] MEDS: D5W 5% IV SCH (23:34)
[2021-05-21] VITALS (107 sets, daily range): BP systolic 101–151; BP diastolic 47–76
[2021-05-21] MEDS: ALBUTEROL SULF 2.5 MG/0.5ML(0.5%) NEB SOLN NEB PRN ×4 (00:05→18:17)
[2021-05-21] MEDS: IPRATROPIUM BROM 0.5 MG/2.5ML INH SOL NEB SCH ×4 (00:05→18:17)
[2021-05-21] MEDS: PROPOFOL 100 ML IV SCH (04:20)
[2021-05-21 04:33] LABS: Hemoglobin 9.2 g/dL (13.5-17.5); Mean Corpuscular Hemoglobin 30.8 pg (28.0-32.0); Mean Corpuscular Hgb Conc. 34.3 g/dL (32.0-36.0); Mean Corpuscular Volume 89.9 fL (80.0-100.0); Red Cell Distribution Width 18.6 % (11.8-14.3); White Blood Cell 17.6 10^3/uL (4.4-10.8)
[2021-05-21 04:54] LABS: Basophils % (manual) 0 (0.0-2.0); Blast Cells 0; Eosinophils % (manual) 0 (0-7); Lymphocytes % (manual) 0 (10.0-50.0); Metamyelocytes % 0; Monocytes % (manual) 0 (0-12); Promyelocytes % 0; Reactive Lymphocytes 0
[2021-05-21 04:55] LABS: Potassium 4.8 mmol/L (3.5-5.1)
[2021-05-21 05:00] LABS: Albumin 2.3 g/dL (3.4-5.0); BUN/Creatinine Ratio 35.6; Calcium 7.2 mg/dL (8.5-10.1)
[2021-05-21 05:08] LABS: Bilirubin, Total 0.4 mg/dL (0.2-1.0); CRP High Sensitivity 3.01 mg/dL (< 0.3)
[2021-05-21] MEDS: CALCIUM ACETATE 667 MG CAP NG SCH ×3 (06:00→22:00)
[2021-05-21] MEDS: methylPREDNISolone SOD SUCC 125 MG/2 ML VL IV SCH ×3 (06:00→19:45)
[2021-05-21 06:12] LABS: Band Neutrophils % (manual) 16; Myelocytes % 1
[2021-05-21] MEDS: CALCITRIOL 0.25 MCG CAP NG SCH (10:00)
[2021-05-21] MEDS: ASPirin 81 mg TAB PO SCH (10:00)
[2021-05-21] MEDS: NOREPINEPHRINE 8 MG/250ML KIT 250 ML IV SCH (10:45)
[2021-05-21] MEDS: DOPamine 1600MCG/ML D5W 250 ML IV SCH (10:45)
[2021-05-21] MEDS: MICAFUNGIN SODIUM 100 MG in SODIUM CHL 0.9% 100 ML IV SCH (11:15)
[2021-05-21] MEDS: DOCUSATE ORAL LIQUID 100 MG/10 ML UD GT SCH (11:15)
[2021-05-21] MEDS: PANTOPRAZOLE 40 MG/10 ML VIAL INJ IV SCH ×2 (11:15→21:59)
[2021-05-21] MEDS ORDERED: Nepro With Carb Steady 1 Liter Bottle GT SCH (12:00)
[2021-05-21] MEDS: AZITHROMYCIN 500MG/ 250ML 250 ML IV SCH (12:41)
[2021-05-21] MEDS: BUMETANIDE INJECTION 12.5 MG in GIVE UN-DILUTED 0 ML IV SCH (15:25)
[2021-05-21] MEDS: fentaNYL Drip 2500mCg/250mlNS 250 ML IV SCH (20:27)
[2021-05-21] MEDS: SULFAMETH TRIMETH IV SCH ×2 (21:59→22:14)
[2021-05-21] MEDS: D5W 5% IV SCH ×2 (21:59→22:14)
[2021-05-22] VITALS (98 sets, daily range): BP systolic 79–151; BP diastolic 44–69
[2021-05-22] MEDS: IPRATROPIUM BROM 0.5 MG/2.5ML INH SOL NEB SCH ×4 (00:05→18:14)
[2021-05-22] MEDS: PROPOFOL 100 ML IV SCH (02:31)
[2021-05-22] MEDS: methylPREDNISolone SOD SUCC 125 MG/2 ML VL IV SCH ×3 (02:31→18:12)
[2021-05-22 04:26] LABS: Hematocrit 28.1 % (41.0-53.0); Hemoglobin 9.7 g/dL (13.5-17.5); Mean Corpuscular Hemoglobin 30.8 pg (28.0-32.0); Mean Corpuscular Hgb Conc. 34.4 g/dL (32.0-36.0); Mean Corpuscular Volume 89.4 fL (80.0-100.0); Red Blood Cells 3.14 10^6/uL (4.5-5.90); Red Cell Distribution Width 18.6 % (11.8-14.3); White Blood Cell 17.2 10^3/uL (4.4-10.8)
[2021-05-22 04:42] LABS: Calcium 7.7 mg/dL (8.5-10.1)
[2021-05-22 04:49] LABS: Basophils % (manual) 0 (0.0-2.0); Blast Cells 0; Eosinophils % (manual) 0 (0-7); Metamyelocytes % 0; Monocytes % (manual) 0 (0-12); Myelocytes % 0; Promyelocytes % 0; Reactive Lymphocytes 0
[2021-05-22 04:52] LABS: Albumin 2.5 g/dL (3.4-5.0); BUN/Creatinine Ratio 38.3; Bilirubin, Total 0.7 mg/dL (0.2-1.0); CRP High Sensitivity 3.48 mg/dL (< 0.3); Total Protein 5.7 g/dL (6.4-8.2)
[2021-05-22 05:03] LABS: Potassium 2.6 mmol/L (3.5-5.1)
[2021-05-22] MEDS: POTASSIUM CHL 20MEQ/100ML 100 ML IV SCH ×5 (06:00→20:31)
[2021-05-22] MEDS: ALBUTEROL SULF 2.5 MG/0.5ML(0.5%) NEB SOLN NEB PRN ×3 (06:07→18:14)
[2021-05-22] MEDS: CALCIUM ACETATE 667 MG CAP NG SCH ×3 (06:14→21:34)
[2021-05-22 06:54] LABS: Band Neutrophils % (manual) 14; Lymphocytes % (manual) 2 (10.0-50.0)
[2021-05-22] MEDS: DOCUSATE ORAL LIQUID 100 MG/10 ML UD GT SCH (09:39)
[2021-05-22] MEDS: AZITHROMYCIN 500MG/ 250ML 250 ML IV SCH (09:40)
[2021-05-22] MEDS: CALCITRIOL 0.25 MCG CAP NG SCH (09:40)
[2021-05-22] MEDS: PANTOPRAZOLE 40 MG/10 ML VIAL INJ IV SCH ×2 (09:40→21:34)
[2021-05-22] MEDS: ASPirin 81 mg TAB PO SCH (09:40)
[2021-05-22] MEDS: MICAFUNGIN SODIUM 100 MG in SODIUM CHL 0.9% 100 ML IV SCH (09:40)
[2021-05-22] MEDS: MIDAZOLAM DRIP 50 mg/50mL 50 ML IV SCH (10:32)
[2021-05-22] MEDS: NOREPINEPHRINE 8 MG/250ML KIT 250 ML IV SCH ×2 (10:45→20:00)
[2021-05-22] MEDS: DOPamine 1600MCG/ML D5W 250 ML IV SCH (10:45)
[2021-05-22] MEDS: BUMETANIDE INJECTION 12.5 MG in GIVE UN-DILUTED 0 ML IV SCH (12:05)
[2021-05-22] MEDS ORDERED: BUMETANIDE INJECTION 12.5 MG in GIVE UN-DILUTED 0 ML IV SCH (14:45)
[2021-05-22] MEDS ORDERED: DEXTROSE (50%) 50ML SYRG IV PRN (16:30)
[2021-05-22] MEDS: fentaNYL Drip 2500mCg/250mlNS 250 ML IV SCH ×2 (17:30→18:27)
[2021-05-22] MEDS: ACCU-CHEK COMFORT CURVE STRIP VI SCH (18:12)
[2021-05-22] MEDS: InsuLIN REG 1unit/0.01ml Soln (100units/ml) SC SCH (18:12)
[2021-05-22] MEDS: POTASSIUM EFFERVESENT TAB 25 MEQ GT SCH (21:33)
[2021-05-22] MEDS: D5W 5% IV SCH (21:36)
[2021-05-22] MEDS: SULFAMETH TRIMETH IV SCH (21:36)
[2021-05-23] VITALS (83 sets, daily range): BP systolic 77–168; BP diastolic 39–99
[2021-05-23] MEDS: ACCU-CHEK COMFORT CURVE STRIP VI SCH ×4 (00:07→17:12)
[2021-05-23] MEDS: MIDAZOLAM DRIP 50 mg/50mL 50 ML IV SCH ×2 (00:07→23:00)
[2021-05-23] MEDS: InsuLIN REG 1unit/0.01ml Soln (100units/ml) SC SCH ×4 (00:09→17:10)
[2021-05-23] MEDS: IPRATROPIUM BROM 0.5 MG/2.5ML INH SOL NEB SCH ×5 (00:10→23:55)
[2021-05-23] MEDS: ALBUTEROL SULF 2.5 MG/0.5ML(0.5%) NEB SOLN NEB PRN ×4 (00:10→23:55)
[2021-05-23] MEDS: PROPOFOL 100 ML IV SCH ×2 (02:00→15:51)
[2021-05-23] MEDS: methylPREDNISolone SOD SUCC 125 MG/2 ML VL IV SCH ×3 (02:52→20:00)
[2021-05-23 04:25] LABS: Hematocrit 30.9 % (41.0-53.0); Hemoglobin 10.4 g/dL (13.5-17.5); Mean Corpuscular Hemoglobin 30.4 pg (28.0-32.0); Mean Corpuscular Hgb Conc. 33.5 g/dL (32.0-36.0); Mean Corpuscular Volume 90.7 fL (80.0-100.0); Red Blood Cells 3.41 10^6/uL (4.5-5.90); Red Cell Distribution Width 18.5 % (11.8-14.3); White Blood Cell 23.5 10^3/uL (4.4-10.8)
[2021-05-23 04:38] LABS: Albumin 2.6 g/dL (3.4-5.0); Calcium 8.5 mg/dL (8.5-10.1); Potassium 4.6 mmol/L (3.5-5.1)
[2021-05-23 04:42] LABS: Basophils % (manual) 0 (0.0-2.0); Blast Cells 0; Eosinophils % (manual) 0 (0-7); Metamyelocytes % 0; Promyelocytes % 0; Reactive Lymphocytes 0
[2021-05-23 04:47] LABS: Bilirubin, Total 0.7 mg/dL (0.2-1.0); CRP High Sensitivity 4.8 mg/dL (< 0.3); Total Protein 5.9 g/dL (6.4-8.2)
[2021-05-23] MEDS: CALCIUM ACETATE 667 MG CAP NG SCH ×3 (06:00→22:30)
[2021-05-23 07:00] LABS: Band Neutrophils % (manual) 11; Lymphocytes % (manual) 4 (10.0-50.0); Monocytes % (manual) 6 (0-12); Myelocytes % 1
[2021-05-23] MEDS: ASPirin 81 mg TAB PO SCH (09:24)
[2021-05-23] MEDS: DOCUSATE ORAL LIQUID 100 MG/10 ML UD GT SCH (09:24)
[2021-05-23] MEDS: PANTOPRAZOLE 40 MG/10 ML VIAL INJ IV SCH ×2 (09:25→22:30)
[2021-05-23] MEDS: POTASSIUM EFFERVESENT TAB 25 MEQ GT SCH (09:25)
[2021-05-23] MEDS: MICAFUNGIN SODIUM 100 MG in SODIUM CHL 0.9% 100 ML IV SCH (09:33)
[2021-05-23] MEDS: CALCITRIOL 0.25 MCG CAP NG SCH (10:17)
[2021-05-23] MEDS ORDERED: acetaZOLAMIDE SODIUM 500 MG VL IV ONE (13:30)
[2021-05-23] MEDS: ACETAMINOPHEN 650 mg PER 20.3 mL UD GT PRN (15:21)
[2021-05-23] MEDS ORDERED: VANCOMYCIN PER PHARMACY 0 MG IV SCH (18:45)
[2021-05-23] MEDS: DOPamine 1600MCG/ML D5W 250 ML IV SCH (19:41)
[2021-05-23] MEDS ORDERED: VANCOMYCIN 1GM/250ML 250 ML IV ONE (20:15)
[2021-05-23] MEDS ORDERED: MEROPENEM 1GM IVPB 100 ML IV SCH (22:00)
[2021-05-23] MEDS: SULFAMETH TRIMETH IV SCH (22:45)
[2021-05-23] MEDS: D5W 5% IV SCH (22:45)
[2021-05-24] VITALS (93 sets, daily range): BP systolic 63–201; BP diastolic 33–88
[2021-05-24] MEDS: ACCU-CHEK COMFORT CURVE STRIP VI SCH ×5 (00:21→23:41)
[2021-05-24] MEDS: InsuLIN REG 1unit/0.01ml Soln (100units/ml) SC SCH ×5 (00:23→23:42)
[2021-05-24] MEDS: NOREPINEPHRINE 8 MG/250ML KIT 250 ML IV SCH (01:15)
[2021-05-24] MEDS: methylPREDNISolone SOD SUCC 125 MG/2 ML VL IV SCH ×3 (03:00→18:21)
[2021-05-24] MEDS: fentaNYL Drip 2500mCg/250mlNS 250 ML IV SCH (03:00)
[2021-05-24] MEDS: PROPOFOL 100 ML IV SCH ×2 (04:00→18:08)
[2021-05-24 04:20] LABS: Hematocrit 31.1 % (41.0-53.0); Hemoglobin 10.1 g/dL (13.5-17.5); Mean Corpuscular Hemoglobin 30.1 pg (28.0-32.0); Mean Corpuscular Hgb Conc. 32.5 g/dL (32.0-36.0); Mean Corpuscular Volume 92.7 fL (80.0-100.0); Red Blood Cells 3.36 10^6/uL (4.5-5.90); Red Cell Distribution Width 18.4 % (11.8-14.3); White Blood Cell 19.5 10^3/uL (4.4-10.8)
[2021-05-24 04:31] LABS: Basophils % (manual) 0 (0.0-2.0); Blast Cells 0; Eosinophils % (manual) 0 (0-7); Promyelocytes % 0; Reactive Lymphocytes 0
[2021-05-24 04:48] LABS: Calcium 8.6 mg/dL (8.5-10.1)
[2021-05-24 05:17] LABS: Potassium 5.8 mmol/L (3.5-5.1)
[2021-05-24] MEDS ORDERED: SODIUM ZIRCONIUM CYCL 10 GM PAK PO ONE (05:45)
[2021-05-24] MEDS: CALCIUM ACETATE 667 MG CAP NG SCH ×3 (06:00→21:50)
[2021-05-24] MEDS: ALBUTEROL SULF 2.5 MG/0.5ML(0.5%) NEB SOLN NEB PRN ×4 (06:20→23:38)
[2021-05-24] MEDS: IPRATROPIUM BROM 0.5 MG/2.5ML INH SOL NEB SCH ×4 (06:20→23:38)
[2021-05-24 06:55] LABS: Band Neutrophils % (manual) 14; Lymphocytes % (manual) 1 (10.0-50.0); Metamyelocytes % 2; Monocytes % (manual) 3 (0-12); Myelocytes % 4
[2021-05-24] MEDS ORDERED: POTASSIUM EFFERVESENT TAB 25 MEQ GT SCH (10:00)
[2021-05-24] MEDS: CALCITRIOL 0.25 MCG CAP NG SCH (10:00)
[2021-05-24] MEDS: DOCUSATE ORAL LIQUID 100 MG/10 ML UD GT SCH (10:00)
[2021-05-24] MEDS: MEROPENEM 500MG IVPB 50 ML IV SCH ×3 (10:00→21:47)
[2021-05-24] MEDS: BUMETANIDE 2.5mg/10ml (0.25 mg/ml) INJ IV SCH (10:27)
[2021-05-24] MEDS: PANTOPRAZOLE 40 MG/10 ML VIAL INJ IV SCH ×2 (10:28→21:49)
[2021-05-24] MEDS: ASPirin 81 mg TAB PO SCH (10:28)
[2021-05-24] MEDS: MICAFUNGIN SODIUM 100 MG in SODIUM CHL 0.9% 100 ML IV SCH (10:31)
[2021-05-24] MEDS ORDERED: AMIODARONE HCL 150 MG in D5W 5% 100 ML IV ONE (13:15)
[2021-05-24] MEDS ORDERED: AMIODARONE 450mg/250ml AE 250 ML IV SCH (13:30)
[2021-05-24] MEDS ORDERED: VANCOMYCIN 500 MG in D5W 5% 100 ML IV ONE (18:00)
[2021-05-24] MEDS: AMIODARONE 450mg/250ml AE 250 ML IV SCH ×2 (19:30→22:34)
[2021-05-24] MEDS: D5W 5% IV SCH (21:50)
[2021-05-24] MEDS: SULFAMETH TRIMETH IV SCH (21:50)
[2021-05-25] VITALS (100 sets, daily range): BP systolic 95–155; BP diastolic 47–88
[2021-05-25] MEDS: methylPREDNISolone SOD SUCC 125 MG/2 ML VL IV SCH ×3 (03:00→18:48)
[2021-05-25 04:17] LABS: Hematocrit 32.2 % (41.0-53.0); Hemoglobin 10.5 g/dL (13.5-17.5); Mean Corpuscular Hemoglobin 29.8 pg (28.0-32.0); Mean Corpuscular Hgb Conc. 32.6 g/dL (32.0-36.0); Mean Corpuscular Volume 91.4 fL (80.0-100.0); Red Blood Cells 3.53 10^6/uL (4.5-5.90); Red Cell Distribution Width 19.1 % (11.8-14.3); White Blood Cell 23.5 10^3/uL (4.4-10.8)
[2021-05-25 04:35] LABS: Potassium 4.8 mmol/L (3.5-5.1)
[2021-05-25 04:37] LABS: Basophils % (manual) 0 (0.0-2.0); Blast Cells 0; Eosinophils % (manual) 0 (0-7); Lymphocytes % (manual) 0 (10.0-50.0); Metamyelocytes % 0; Myelocytes % 0; Promyelocytes % 0; Reactive Lymphocytes 0
[2021-05-25 04:46] LABS: Albumin 2.5 g/dL (3.4-5.0); BUN/Creatinine Ratio 38.5; Calcium 8.4 mg/dL (8.5-10.1)
[2021-05-25 04:49] LABS: Bilirubin, Total 0.6 mg/dL (0.2-1.0)
[2021-05-25] MEDS: InsuLIN REG 1unit/0.01ml Soln (100units/ml) SC SCH ×3 (06:00→17:24)
[2021-05-25] MEDS: ACCU-CHEK COMFORT CURVE STRIP VI SCH ×3 (06:00→17:41)
[2021-05-25] MEDS: ALBUTEROL SULF 2.5 MG/0.5ML(0.5%) NEB SOLN NEB PRN ×2 (06:32→12:04)
[2021-05-25] MEDS: IPRATROPIUM BROM 0.5 MG/2.5ML INH SOL NEB SCH ×3 (06:32→18:16)
[2021-05-25] MEDS: CALCIUM ACETATE 667 MG CAP NG SCH ×3 (06:54→20:49)
[2021-05-25] MEDS: MEROPENEM 500MG IVPB 50 ML IV SCH ×2 (09:24→20:48)
[2021-05-25] MEDS: BUMETANIDE 2.5mg/10ml (0.25 mg/ml) INJ IV SCH (09:24)
[2021-05-25] MEDS: PANTOPRAZOLE 40 MG/10 ML VIAL INJ IV SCH ×2 (09:24→20:49)
[2021-05-25 09:27] LABS: Band Neutrophils % (manual) 4; Monocytes % (manual) 2 (0-12)
[2021-05-25] MEDS: CALCITRIOL 0.25 MCG CAP NG SCH (09:50)
[2021-05-25] MEDS: DOCUSATE ORAL LIQUID 100 MG/10 ML UD GT SCH (09:50)
[2021-05-25] MEDS: ASPirin 81 mg TAB PO SCH (10:00)
[2021-05-25] MEDS: DOPamine 1600MCG/ML D5W 250 ML IV SCH ×2 (10:45→13:46)
[2021-05-25] MEDS: PROPOFOL 100 ML IV SCH ×2 (12:25→20:50)
[2021-05-25] MEDS: AMIODARONE 450mg/250ml AE 250 ML IV SCH (14:49)
[2021-05-25] MEDS: NOREPINEPHRINE 8 MG/250ML KIT 250 ML IV SCH (17:46)
[2021-05-25] MEDS: fentaNYL Drip 2500mCg/250mlNS 250 ML IV SCH (18:54)
[2021-05-25] MEDS: D5W 5% IV SCH (22:00)
[2021-05-25] MEDS: SULFAMETH TRIMETH IV SCH (22:00)
[2021-05-26] VITALS (100 sets, daily range): BP systolic 102–153; BP diastolic 45–64
[2021-05-26] MEDS: IPRATROPIUM BROM 0.5 MG/2.5ML INH SOL NEB SCH ×4 (02:41→18:47)
[2021-05-26] MEDS: methylPREDNISolone SOD SUCC 125 MG/2 ML VL IV SCH ×3 (03:00→19:00)
[2021-05-26 04:33] LABS: Hematocrit 29.4 % (41.0-53.0); Hemoglobin 9.5 g/dL (13.5-17.5); Mean Corpuscular Hemoglobin 29.7 pg (28.0-32.0); Mean Corpuscular Hgb Conc. 32.2 g/dL (32.0-36.0); Mean Corpuscular Volume 92.2 fL (80.0-100.0); Red Blood Cells 3.19 10^6/uL (4.5-5.90); Red Cell Distribution Width 19.4 % (11.8-14.3); White Blood Cell 21.3 10^3/uL (4.4-10.8)
[2021-05-26 04:43] LABS: Basophils % (manual) 0 (0.0-2.0); Blast Cells 0; Eosinophils % (manual) 0 (0-7); Metamyelocytes % 0; Monocytes % (manual) 0 (0-12); Myelocytes % 0; Promyelocytes % 0; Reactive Lymphocytes 0
[2021-05-26 04:53] LABS: Potassium 4.1 mmol/L (3.5-5.1)
[2021-05-26] MEDS: CALCIUM ACETATE 667 MG CAP NG SCH ×3 (04:56→22:04)
[2021-05-26] MEDS: ACETAMINOPHEN 650 mg PER 20.3 mL UD GT PRN (05:00)
[2021-05-26 05:01] LABS: BUN/Creatinine Ratio 37.2; Calcium 8.6 mg/dL (8.5-10.1)
[2021-05-26] MEDS: InsuLIN REG 1unit/0.01ml Soln (100units/ml) SC SCH ×4 (05:12→18:00)
[2021-05-26] MEDS: ACCU-CHEK COMFORT CURVE STRIP VI SCH ×4 (05:13→19:33)
[2021-05-26 05:50] LABS: Band Neutrophils % (manual) 23; Lymphocytes % (manual) 3 (10.0-50.0)
[2021-05-26] MEDS: ALBUTEROL SULF 2.5 MG/0.5ML(0.5%) NEB SOLN NEB PRN ×3 (06:13→18:47)
[2021-05-26] MEDS: PROPOFOL 100 ML IV SCH ×2 (06:54→23:37)
[2021-05-26] MEDS: AMIODARONE 450mg/250ml AE 250 ML IV SCH ×2 (08:26→22:05)
[2021-05-26] MEDS: ASPirin 81 mg TAB PO SCH (09:49)
[2021-05-26] MEDS: CALCITRIOL 0.25 MCG CAP NG SCH (09:49)
[2021-05-26] MEDS: PANTOPRAZOLE 40 MG/10 ML VIAL INJ IV SCH ×2 (09:49→22:04)
[2021-05-26] MEDS: DOCUSATE ORAL LIQUID 100 MG/10 ML UD GT SCH (09:49)
[2021-05-26] MEDS: BUMETANIDE 2.5mg/10ml (0.25 mg/ml) INJ IV SCH (09:49)
[2021-05-26] MEDS: MEROPENEM 500MG IVPB 50 ML IV SCH ×2 (09:49→22:04)
[2021-05-26] MEDS ORDERED: VANCOMYCIN 500 MG in D5W 5% 100 ML IV ONE (18:00)
[2021-05-26] MEDS ORDERED: VANCOMYCIN 1GM/250ML 250 ML IV ONE (18:00)
[2021-05-26] MEDS: SULFAMETH-TRIMETH 80/16MG-ML 15 ML in D5W 5% 500 ML IV SCH (21:58)
[2021-05-27] VITALS (102 sets, daily range): BP systolic 74–140; BP diastolic 35–69
[2021-05-27] MEDS: IPRATROPIUM BROM 0.5 MG/2.5ML INH SOL NEB SCH ×4 (00:04→18:40)
[2021-05-27] MEDS: ALBUTEROL SULF 2.5 MG/0.5ML(0.5%) NEB SOLN NEB PRN ×2 (00:05→18:40)
[2021-05-27] MEDS: methylPREDNISolone SOD SUCC 125 MG/2 ML VL IV SCH ×3 (03:00→18:39)
[2021-05-27 04:33] LABS: Hematocrit 26.9 % (41.0-53.0); Hemoglobin 8.9 g/dL (13.5-17.5); Mean Corpuscular Hemoglobin 30.5 pg (28.0-32.0); Mean Corpuscular Hgb Conc. 33.2 g/dL (32.0-36.0); Mean Corpuscular Volume 91.7 fL (80.0-100.0); Red Blood Cells 2.93 10^6/uL (4.5-5.90); Red Cell Distribution Width 19.2 % (11.8-14.3); White Blood Cell 22.4 10^3/uL (4.4-10.8)
[2021-05-27 04:47] LABS: Basophils % (manual) 0 (0.0-2.0); Blast Cells 0; Eosinophils % (manual) 0 (0-7); Metamyelocytes % 0; Myelocytes % 0; Promyelocytes % 0; Reactive Lymphocytes 0
[2021-05-27 04:51] LABS: Calcium 8.7 mg/dL (8.5-10.1); Potassium 3.7 mmol/L (3.5-5.1)
[2021-05-27] MEDS: NOREPINEPHRINE 8 MG/250ML KIT 250 ML IV SCH (05:18)
[2021-05-27] MEDS: InsuLIN REG 1unit/0.01ml Soln (100units/ml) SC SCH ×4 (05:37→18:00)
[2021-05-27] MEDS: CALCIUM ACETATE 667 MG CAP NG SCH ×3 (05:37→22:00)
[2021-05-27 06:44] LABS: Band Neutrophils % (manual) 27; Lymphocytes % (manual) 6 (10.0-50.0); Monocytes % (manual) 1 (0-12)
[2021-05-27] MEDS ORDERED: VANCOMYCIN 500 MG in D5W 5% 100 ML IV ONE (08:15)
[2021-05-27] MEDS: DOPamine 1600MCG/ML D5W 250 ML IV SCH (08:17)
[2021-05-27] MEDS: fentaNYL Drip 2500mCg/250mlNS 250 ML IV SCH (08:19)
[2021-05-27] MEDS ORDERED: VANCOMYCIN 1GM/250ML 250 ML IV ONE (08:30)
[2021-05-27] MEDS: DOCUSATE ORAL LIQUID 100 MG/10 ML UD GT SCH (10:00)
[2021-05-27] MEDS: ASPirin 81 mg TAB PO SCH (10:07)
[2021-05-27] MEDS: CALCITRIOL 0.25 MCG CAP NG SCH (10:07)
[2021-05-27] MEDS: PANTOPRAZOLE 40 MG/10 ML VIAL INJ IV SCH ×2 (10:07→22:23)
[2021-05-27] MEDS: BUMETANIDE 2.5mg/10ml (0.25 mg/ml) INJ IV SCH (10:08)
[2021-05-27] MEDS: SULFAMETH-TRIMETH 80/16MG-ML 15 ML in D5W 5% 500 ML IV SCH ×2 (10:08→22:23)
[2021-05-27] MEDS: MEROPENEM 500MG IVPB 50 ML IV SCH (12:00)
[2021-05-27] MEDS: ACCU-CHEK COMFORT CURVE STRIP VI SCH ×3 (12:00→18:00)
[2021-05-28] VITALS (93 sets, daily range): BP systolic 78–136; BP diastolic 32–54
[2021-05-28] MEDS: MEROPENEM 500MG IVPB 50 ML IV SCH ×2 (02:07→12:39)
[2021-05-28] MEDS: ACCU-CHEK COMFORT CURVE STRIP VI SCH ×3 (02:08→12:24)
[2021-05-28] MEDS: methylPREDNISolone SOD SUCC 125 MG/2 ML VL IV SCH ×3 (02:08→19:00)
[2021-05-28] MEDS: ALBUTEROL SULF 2.5 MG/0.5ML(0.5%) NEB SOLN NEB PRN ×3 (02:14→18:20)
[2021-05-28] MEDS: IPRATROPIUM BROM 0.5 MG/2.5ML INH SOL NEB SCH ×4 (02:14→18:20)
[2021-05-28] MEDS: InsuLIN REG 1unit/0.01ml Soln (100units/ml) SC SCH ×3 (02:35→12:25)
[2021-05-28] MEDS: CALCIUM ACETATE 667 MG CAP NG SCH ×3 (05:46→22:00)
[2021-05-28] MEDS: BUMETANIDE 2.5mg/10ml (0.25 mg/ml) INJ IV SCH (09:05)
[2021-05-28] MEDS: ASPirin 81 mg TAB PO SCH (09:05)
[2021-05-28] MEDS: SULFAMETH-TRIMETH 80/16MG-ML 15 ML in D5W 5% 500 ML IV SCH ×2 (09:06→22:00)
[2021-05-28] MEDS: CALCITRIOL 0.25 MCG CAP NG SCH (09:06)
[2021-05-28 09:13] LABS: Basophils # (auto) 0.3 10 ^3/uL (0-0.2); Basophils % (auto) 0.9 % (0.0-2.0); Eosinophils # (auto) 0 10 ^3/uL (0-0.8); Hematocrit 26.8 % (41.0-53.0); Hemoglobin 9.1 g/dL (13.5-17.5); Lymphocytes # (auto) 1.3 10 ^3/uL (0.4-5.4); Lymphocytes % (auto) 4.8 % (10.0-50.0); Mean Corpuscular Hemoglobin 31.1 pg (28.0-32.0); Mean Corpuscular Volume 91.5 fL (80.0-100.0); Monocytes # (auto) 0.4 10 ^3/uL (0-1.3); Monocytes % (auto) 1.3 % (0.0-12.0); Neutrophils # (auto) 25.9 10 ^3/uL (1.6-8.6); Nucleated Red Blood Cells % 2.6 %; Red Blood Cells 2.93 10^6/uL (4.5-5.90); Red Cell Distribution Width 19.1 % (11.8-14.3); White Blood Cell 27.9 10^3/uL (4.4-10.8)
[2021-05-28] MEDS: fentaNYL Drip 2500mCg/250mlNS 250 ML IV SCH (09:20)
[2021-05-28 09:29] LABS: BUN/Creatinine Ratio 36.7; Calcium 8.1 mg/dL (8.5-10.1); Potassium 4.2 mmol/L (3.5-5.1)
[2021-05-28] MEDS: DOPamine 1600MCG/ML D5W 250 ML IV SCH (10:45)
[2021-05-28] MEDS: DOCUSATE ORAL LIQUID 100 MG/10 ML UD GT SCH (12:37)
[2021-05-28] MEDS: PANTOPRAZOLE 40 MG/10 ML VIAL INJ IV SCH ×2 (12:38→22:00)
[2021-05-28] MEDS: PROPOFOL 100 ML IV SCH ×2 (12:48→16:01)
[2021-05-28] MEDS ORDERED: CLINIMIX PER PHARMACY 0 ML IV SCH (17:30)
[2021-05-28] MEDS ORDERED: AMINO ACID INFUSION IN D10W 1,000 ML IV NR (20:00)
[2021-05-29] VITALS (72 sets, daily range): BP systolic 77–121; BP diastolic 33–56
[2021-05-29] MEDS: MEROPENEM 500MG IVPB 50 ML IV SCH (00:10)
[2021-05-29] MEDS: ALBUTEROL SULF 2.5 MG/0.5ML(0.5%) NEB SOLN NEB PRN ×4 (02:12→18:33)
[2021-05-29] MEDS: IPRATROPIUM BROM 0.5 MG/2.5ML INH SOL NEB SCH ×4 (02:12→18:33)
[2021-05-29] MEDS: methylPREDNISolone SOD SUCC 125 MG/2 ML VL IV SCH ×3 (03:00→19:00)
[2021-05-29 04:36] LABS: Eosinophils # (auto) 0 10 ^3/uL (0-0.8); Mean Corpuscular Volume 92.6 fL (80.0-100.0); Monocytes # (auto) 0.3 10 ^3/uL (0-1.3)
[2021-05-29 04:38] LABS: Basophils # (auto) 0.1 10 ^3/uL (0-0.2); Basophils % (auto) 0.4 % (0.0-2.0); Hematocrit 22.6 % (41.0-53.0); Hemoglobin 7.7 g/dL (13.5-17.5); Lymphocytes # (auto) 0.3 10 ^3/uL (0.4-5.4); Lymphocytes % (auto) 1.5 % (10.0-50.0); Mean Corpuscular Hemoglobin 31.4 pg (28.0-32.0); Mean Corpuscular Hgb Conc. 33.9 g/dL (32.0-36.0); Monocytes % (auto) 1.4 % (0.0-12.0); Neutrophils # (auto) 22.3 10 ^3/uL (1.6-8.6); Neutrophils % (auto) 96.7 % (37.0-80.0); Nucleated Red Blood Cells % 1.5 %; Red Blood Cells 2.44 10^6/uL (4.5-5.90); Red Cell Distribution Width 18.7 % (11.8-14.3)
[2021-05-29 05:00] LABS: Albumin 1.6 g/dL (3.4-5.0); Magnesium 1.8 mg/dL (1.6-2.6); Potassium 3.4 mmol/L (3.5-5.1)
[2021-05-29 05:06] LABS: BUN/Creatinine Ratio 25.3; Bilirubin, Total 0.7 mg/dL (0.2-1.0); Phosphorus 3.9 mg/dL (2.5-4.90); Pre Albumin 26.4 mg/dL (20.0-40.0); Total Protein 4.9 g/dL (6.4-8.2)
[2021-05-29 05:10] LABS: Calcium 5.4 mg/dL (8.5-10.1)
[2021-05-29] MEDS: CALCIUM ACETATE 667 MG CAP NG SCH ×3 (06:00→22:20)
[2021-05-29 08:33] LABS: Hematocrit 24.7 % (41.0-53.0); Mean Corpuscular Hemoglobin 29.6 pg (28.0-32.0); Mean Corpuscular Hgb Conc. 32.3 g/dL (32.0-36.0); Mean Corpuscular Volume 91.7 fL (80.0-100.0); Red Blood Cells 2.69 10^6/uL (4.5-5.90); Red Cell Distribution Width 19.4 % (11.8-14.3); White Blood Cell 22.4 10^3/uL (4.4-10.8)
[2021-05-29 08:36] LABS: Basophils % (manual) 0 (0.0-2.0); Blast Cells 0; Eosinophils % (manual) 0 (0-7); Metamyelocytes % 0; Myelocytes % 0; Promyelocytes % 0; Reactive Lymphocytes 0
[2021-05-29] MEDS: PANTOPRAZOLE 40 MG/10 ML VIAL INJ IV SCH ×2 (10:14→22:20)
[2021-05-29] MEDS: PROPOFOL 100 ML IV SCH ×3 (10:14→23:18)
[2021-05-29] MEDS: BUMETANIDE 2.5mg/10ml (0.25 mg/ml) INJ IV SCH (10:15)
[2021-05-29] MEDS: ASPirin 81 mg TAB PO SCH (10:15)
[2021-05-29] MEDS ORDERED: CALCIUM GLUC 1,000mg/50ml-NS 50 ML IV ONE (10:39)
[2021-05-29] MEDS: InsuLIN REG 1unit/0.01ml Soln (100units/ml) SC SCH ×2 (12:00→23:45)
[2021-05-29] MEDS ORDERED: POTASSIUM CHL 20MEQ/100ML 100 ML IV ONE (12:00)
[2021-05-29] MEDS ORDERED: DEXTROSE (50%) 50ML SYRG IV SCH (12:00)
[2021-05-29 12:42] LABS: Band Neutrophils % (manual) 3; Lymphocytes % (manual) 2 (10.0-50.0); Monocytes % (manual) 1 (0-12)
[2021-05-29] MEDS: SULFAMETH-TRIMETH 80/16MG-ML 15 ML in D5W 5% 500 ML IV SCH ×2 (16:44→22:20)
[2021-05-29] MEDS: ACCU-CHEK COMFORT CURVE STRIP VI SCH ×2 (16:46→23:44)
[2021-05-29] MEDS: CALCITRIOL 0.25 MCG CAP NG SCH (16:48)
[2021-05-29] MEDS: AMIODARONE 450mg/250ml AE 250 ML IV SCH (17:51)
[2021-05-29] MEDS: fentaNYL Drip 2500mCg/250mlNS 250 ML IV SCH ×2 (17:57)
[2021-05-29] MEDS ORDERED: AMINO ACID INFUSION IN D10W 1,000 ML IV NR (20:00)
[2021-05-29] MEDS: DOPamine 1600MCG/ML D5W 250 ML IV SCH (22:20)
[2021-05-30] VITALS (100 sets, daily range): BP systolic 87–134; BP diastolic 39–60
[2021-05-30] MEDS: IPRATROPIUM BROM 0.5 MG/2.5ML INH SOL NEB SCH ×4 (00:20→22:17)
[2021-05-30] MEDS: methylPREDNISolone SOD SUCC 125 MG/2 ML VL IV SCH ×3 (04:30→18:09)
[2021-05-30 04:59] LABS: Basophils # (auto) 0.1 10 ^3/uL (0-0.2); Eosinophils # (auto) 0.2 10 ^3/uL (0-0.8); Monocytes # (auto) 0.1 10 ^3/uL (0-1.3); Monocytes % (auto) 0.6 % (0.0-12.0); White Blood Cell 15.3 10^3/uL (4.4-10.8)
[2021-05-30] MEDS: NOREPINEPHRINE 8 MG/250ML KIT 250 ML IV SCH (05:00)
[2021-05-30 05:15] LABS: Basophils % (auto) 0.8 % (0.0-2.0); Eosinophils % (auto) 1.6 % (0.0-7.0); Hemoglobin 8.3 g/dL (13.5-17.5); Lymphocytes # (auto) 1.5 10 ^3/uL (0.4-5.4); Lymphocytes % (auto) 9.9 % (10.0-50.0); Mean Corpuscular Hemoglobin 30.6 pg (28.0-32.0); Mean Corpuscular Hgb Conc. 33.2 g/dL (32.0-36.0); Mean Corpuscular Volume 92.1 fL (80.0-100.0); Neutrophils # (auto) 13.4 10 ^3/uL (1.6-8.6); Neutrophils % (auto) 87.1 % (37.0-80.0); Nucleated Red Blood Cells % 2.5 %; Red Blood Cells 2.72 10^6/uL (4.5-5.90); Red Cell Distribution Width 19.2 % (11.8-14.3)
[2021-05-30 05:22] LABS: Albumin 1.8 g/dL (3.4-5.0); Calcium 6.6 mg/dL (8.5-10.1); Magnesium 1.9 mg/dL (1.6-2.6)
[2021-05-30 05:28] LABS: BUN/Creatinine Ratio 40.5; Bilirubin, Total 0.8 mg/dL (0.2-1.0); Phosphorus 3.2 mg/dL (2.5-4.90); Total Protein 4.9 g/dL (6.4-8.2)
[2021-05-30] MEDS: InsuLIN REG 1unit/0.01ml Soln (100units/ml) SC SCH ×4 (06:00→23:45)
[2021-05-30] MEDS: PROPOFOL 100 ML IV SCH ×2 (06:03→17:36)
[2021-05-30] MEDS: CALCIUM ACETATE 667 MG CAP NG SCH ×3 (06:03→22:00)
[2021-05-30] MEDS: ACCU-CHEK COMFORT CURVE STRIP VI SCH ×4 (06:06→23:44)
[2021-05-30] MEDS: ALBUTEROL SULF 2.5 MG/0.5ML(0.5%) NEB SOLN NEB PRN ×3 (06:39→22:17)
[2021-05-30] MEDS ORDERED: CALCIUM GLUC 1,000mg/50ml-NS 50 ML IV ONE (09:00)
[2021-05-30] MEDS: DOCUSATE ORAL LIQUID 100 MG/10 ML UD GT SCH ×2 (10:00→11:00)
[2021-05-30] MEDS: DOPamine 1600MCG/ML D5W 250 ML IV SCH (10:45)
[2021-05-30] MEDS: BUMETANIDE 2.5mg/10ml (0.25 mg/ml) INJ IV SCH (10:50)
[2021-05-30] MEDS: PANTOPRAZOLE 40 MG/10 ML VIAL INJ IV SCH ×2 (10:52→23:43)
[2021-05-30] MEDS: ASPirin 81 mg TAB PO SCH (10:52)
[2021-05-30] MEDS: POTASSIUM CHL 20MEQ/100ML 100 ML IV SCH ×3 (10:53→15:00)
[2021-05-30] MEDS: CALCITRIOL 0.25 MCG CAP NG SCH (11:01)
[2021-05-30] MEDS: AMIODARONE 450mg/250ml AE 250 ML IV SCH ×2 (13:19→14:02)
[2021-05-30] MEDS: fentaNYL Drip 2500mCg/250mlNS 250 ML IV SCH (17:30)
[2021-05-30] MEDS ORDERED: AMINO ACID INFUSION IN D10W 1,000 ML IV NR (20:00)
[2021-05-31] VITALS (87 sets, daily range): BP systolic 85–154; BP diastolic 33–60
[2021-05-31] MEDS: IPRATROPIUM BROM 0.5 MG/2.5ML INH SOL NEB SCH ×4 (00:50→18:22)
[2021-05-31] MEDS: ALBUTEROL SULF 2.5 MG/0.5ML(0.5%) NEB SOLN NEB PRN ×3 (00:50→12:47)
[2021-05-31 04:54] LABS: Hemoglobin 7.9 g/dL (13.5-17.5); Mean Corpuscular Hemoglobin 31.1 pg (28.0-32.0)
[2021-05-31 04:57] LABS: Hematocrit 23.2 % (41.0-53.0); Mean Corpuscular Hgb Conc. 34.1 g/dL (32.0-36.0); Mean Corpuscular Volume 91.2 fL (80.0-100.0); Red Blood Cells 2.54 10^6/uL (4.5-5.90); Red Cell Distribution Width 19.4 % (11.8-14.3)
[2021-05-31 05:02] LABS: Potassium 4.8 mmol/L (3.5-5.1)
[2021-05-31 05:09] LABS: Albumin 1.8 g/dL (3.4-5.0); BUN/Creatinine Ratio 45.4; Bilirubin, Total 0.7 mg/dL (0.2-1.0); Calcium 7.7 mg/dL (8.5-10.1); Phosphorus 3.4 mg/dL (2.5-4.90); Total Protein 5.2 g/dL (6.4-8.2)
[2021-05-31 05:45] LABS: Basophils % (manual) 0 (0.0-2.0); Blast Cells 0; Eosinophils % (manual) 0 (0-7); Metamyelocytes % 0; Myelocytes % 0; Promyelocytes % 0; Reactive Lymphocytes 0
[2021-05-31] MEDS: CALCIUM ACETATE 667 MG CAP NG SCH ×3 (06:00→22:07)
[2021-05-31] MEDS: InsuLIN REG 1unit/0.01ml Soln (100units/ml) SC SCH ×4 (06:54→23:48)
[2021-05-31] MEDS: ACCU-CHEK COMFORT CURVE STRIP VI SCH ×4 (06:54→23:47)
[2021-05-31 09:01] LABS: Band Neutrophils % (manual) 10; Lymphocytes % (manual) 3 (10.0-50.0); Monocytes % (manual) 3 (0-12)
[2021-05-31 09:16] LABS: White Blood Cell 12.4 10^3/uL (4.4-10.8)
[2021-05-31] MEDS: DOCUSATE ORAL LIQUID 100 MG/10 ML UD GT SCH (09:23)
[2021-05-31] MEDS: CALCITRIOL 0.25 MCG CAP NG SCH (09:24)
[2021-05-31] MEDS: PANTOPRAZOLE 40 MG/10 ML VIAL INJ IV SCH ×2 (09:24→21:57)
[2021-05-31] MEDS: PROPOFOL 100 ML IV SCH ×3 (09:24→19:01)
[2021-05-31] MEDS: ASPirin 81 mg TAB PO SCH (09:24)
[2021-05-31] MEDS: methylPREDNISolone SOD SUCC 40 MG/ML VL IV SCH ×2 (09:24→21:57)
[2021-05-31] MEDS: DOPamine 1600MCG/ML D5W 250 ML IV SCH (10:45)
[2021-05-31] MEDS: NOREPINEPHRINE 8 MG/250ML KIT 250 ML IV SCH (10:45)
[2021-05-31] MEDS ORDERED: LORazepam 2MG/ML-1ML VIAL IV PRN (12:45)
[2021-05-31] MEDS ORDERED: MORPHINE SULFATE INJECTION 2 MG/ML SYRG IV PRN ×2 (12:45→13:15)
[2021-05-31] MEDS: AMIODARONE 450mg/250ml AE 250 ML IV SCH ×2 (14:39→16:30)
[2021-05-31] MEDS: fentaNYL Drip 2500mCg/250mlNS 250 ML IV SCH (16:38)
[2021-05-31] MEDS ORDERED: AMINO ACID INFUSION IN D10W 1,000 ML IV NR (20:00)
[2021-06-01] VITALS (87 sets, daily range): BP systolic 83–137; BP diastolic 31–60
[2021-06-01] MEDS: IPRATROPIUM BROM 0.5 MG/2.5ML INH SOL NEB SCH ×4 (00:11→18:43)
[2021-06-01] MEDS: PROPOFOL 100 ML IV SCH ×2 (02:00→17:39)
[2021-06-01] MEDS: NOREPINEPHRINE 8 MG/250ML KIT 250 ML IV SCH (02:00)
[2021-06-01 04:32] LABS: Albumin 1.7 g/dL (3.4-5.0); Calcium 8.4 mg/dL (8.5-10.1); Potassium 4.3 mmol/L (3.5-5.1)
[2021-06-01 04:37] LABS: BUN/Creatinine Ratio 47.5; Bilirubin, Total 0.7 mg/dL (0.2-1.0); Phosphorus 3.6 mg/dL (2.5-4.90); Total Protein 5.5 g/dL (6.4-8.2)
[2021-06-01 05:35] LABS: Hemoglobin 8.1 g/dL (13.5-17.5); White Blood Cell 6.6 10^3/uL (4.4-10.8)
[2021-06-01 05:36] LABS: Hematocrit 24.6 % (41.0-53.0); Mean Corpuscular Hemoglobin 30.5 pg (28.0-32.0); Mean Corpuscular Hgb Conc. 32.8 g/dL (32.0-36.0); Red Blood Cells 2.65 10^6/uL (4.5-5.90); Red Cell Distribution Width 19.4 % (11.8-14.3)
[2021-06-01] MEDS: InsuLIN REG 1unit/0.01ml Soln (100units/ml) SC SCH ×3 (05:46→17:46)
[2021-06-01] MEDS: CALCIUM ACETATE 667 MG CAP NG SCH ×2 (05:48→13:54)
[2021-06-01 05:50] LABS: Basophils % (manual) 0 (0.0-2.0); Blast Cells 0; Eosinophils % (manual) 0 (0-7); Metamyelocytes % 0; Myelocytes % 0; Promyelocytes % 0; Reactive Lymphocytes 0
[2021-06-01] MEDS: ACCU-CHEK COMFORT CURVE STRIP VI SCH ×3 (06:12→17:45)
[2021-06-01] MEDS: AMIODARONE 450mg/250ml AE 250 ML IV SCH (06:13)
[2021-06-01] MEDS: ALBUTEROL SULF 2.5 MG/0.5ML(0.5%) NEB SOLN NEB PRN ×3 (06:13→18:43)
[2021-06-01] MEDS: DOCUSATE ORAL LIQUID 100 MG/10 ML UD GT SCH (09:54)
[2021-06-01] MEDS: PANTOPRAZOLE 40 MG/10 ML VIAL INJ IV SCH (09:54)
[2021-06-01] MEDS: methylPREDNISolone SOD SUCC 40 MG/ML VL IV SCH (09:54)
[2021-06-01] MEDS: CALCITRIOL 0.25 MCG CAP NG SCH (09:55)
[2021-06-01] MEDS: ASPirin 81 mg TAB PO SCH (09:55)
[2021-06-01] MEDS ORDERED: ALBUMIN 25% 100 ML IV SCH (10:00)
[2021-06-01] MEDS ORDERED: BUMETANIDE 2.5mg/10ml (0.25 mg/ml) INJ IV SCH (10:00)
[2021-06-01] MEDS: DOPamine 1600MCG/ML D5W 250 ML IV SCH ×2 (10:45→13:36)
[2021-06-01 10:59] LABS: Band Neutrophils % (manual) 18; Lymphocytes % (manual) 3 (10.0-50.0); Monocytes % (manual) 3 (0-12)
[2021-06-01] MEDS ORDERED: fentaNYL Drip 2500mCg/250mlNS 250 ML IV SCH (11:30)
[2021-06-01] MEDS ORDERED: AMINO ACID INFUSION IN D10W 1,000 ML IV NR (20:00)
== END 2021-06-01 20:50 | DRG 207 ==
LOC: ER 08:20 → TELE 14:03 → TELE-CENTR 20:45 → ICU WEST 05-08 11:31
PROVIDERS: ADMIT Internal Medicine; ATTEND Internal Medicine
PROC: 5A09457 Assistance with Respiratory Ventilation, 24-96 Consecutive Hours, Continuous Positive Airway Pressure (ICD-10-PCS; principal; 2021-05-04)
PROC: 05HD33Z Insertion of Infusion Device into Right Cephalic Vein, Percutaneous Approach (ICD-10-PCS; 2021-05-08)
PROC: B54MZZA Ultrasonography of Right Upper Extremity Veins, Guidance (ICD-10-PCS; 2021-05-08)
PROC: 5A1955Z Respiratory Ventilation, Greater than 96 Consecutive Hours (ICD-10-PCS; 2021-05-09)
PROC: 5A09357 Assistance with Respiratory Ventilation, Less than 24 Consecutive Hours, Continuous Positive Airway Pressure (ICD-10-PCS; 2021-05-09)
PROC: 0BH17EZ Insertion of Endotracheal Airway into Trachea, Via Natural or Artificial Opening (ICD-10-PCS; 2021-05-09)
PROC: 02HV33Z Insertion of Infusion Device into Superior Vena Cava, Percutaneous Approach (ICD-10-PCS; 2021-05-09)
PROC: B548ZZA Ultrasonography of Superior Vena Cava, Guidance (ICD-10-PCS; 2021-05-09)
PROC: 0B9D7ZX Drainage of Right Middle Lung Lobe, Via Natural or Artificial Opening, Diagnostic (ICD-10-PCS; 2021-05-10)
PROC: 06HY33Z Insertion of Infusion Device into Lower Vein, Percutaneous Approach (ICD-10-PCS; 2021-05-18)
PROC: B54BZZA Ultrasonography of Right Lower Extremity Veins, Guidance (ICD-10-PCS; 2021-05-18)
PROC: 5A1D70Z Performance of Urinary Filtration, Intermittent, Less than 6 Hours Per Day (ICD-10-PCS; 2021-05-18)
DX: J96.01 Acute respiratory failure with hypoxia (principal); J18.9 Pneumonia, unspecified organism; N17.0 Acute kidney failure with tubular necrosis; C90.30 Solitary plasmacytoma not having achieved remission; E44.0 Moderate protein-calorie malnutrition; I42.9 Cardiomyopathy, unspecified; J98.11 Atelectasis; I13.0 Hypertensive heart and chronic kidney disease with heart failure and stage 1 through stage 4 chronic kidney disease, or unspecified chronic kidney disease; E87.1 Hypo-osmolality and hyponatremia; K92.2 Gastrointestinal hemorrhage, unspecified; B44.9 Aspergillosis, unspecified; I24.8 Other forms of acute ischemic heart disease; Z66 Do not resuscitate; E87.6 Hypokalemia; J84.10 Pulmonary fibrosis, unspecified; I95.9 Hypotension, unspecified; E83.51 Hypocalcemia; D64.9 Anemia, unspecified; T38.0X5A Adverse effect of glucocorticoids and synthetic analogues, initial encounter; Z99.2 Dependence on renal dialysis; E87.5 Hyperkalemia; I48.91 Unspecified atrial fibrillation; Z68.31 Body mass index [BMI] 31.0-31.9, adult; Y92.89 Other specified places as the place of occurrence of the external cause; Z20.822 Contact with and (suspected) exposure to COVID-19; N18.32 Chronic kidney disease, stage 3b
CPT/HCPCS: 31624; 36415; 36600; 71045; 80048; 80053; 80076; 80202; 81001; 82040; 82306; 82570; 82728; 82805; 82962; 83605; 83735; 83880; 83970; 84100; 84132; 84300; 84478; 84484; 85007; 85025; 85027; 85379; 85610; 85730; 86141; 87040; 87070; 87077; 87081; 87186; 87205; 87426; 90935; 93005; 93306; 93970; 94002; 94003; 94640; 94660; 96365; 96367; C9113; G0378; J0696; J1642; J1815; J2185; J2248; J2250; J2704; J3480; J3490; J7060; P9047